=== PATIENT | female | born 1995 | race African-American/Black ===

== ENCOUNTER 2021-04-04 13:06 | Outpatient (CLI) | payer OTHER, SELFPAY ==
--- NOTE | ~2021-04-04 | US_ITS ---
EXAMINATION: US pelvic complete DATE: 04/04/2021 13:56 INDICATION: Menorrhagia Comparison:08/12/2018 TECHNIQUE: Multiple transabdominal sonographic images of the pelvis performed. FINDINGS: The uterus measures 8.7 x 4.8 x 6.3 cm. The endometrial complex measures 7.5 mm. The right ovary measures 3.7 x 2.2 x 2 cm and the left ovary measures 2.9 x 1.6 x 1.8 cm. There are small follicles in each ovary. Normal doppler signal in both ovaries. There is no free fluid in the pelvis. There are no abnormal masses seen on either side. IMPRESSION: 1. Unremarkable pelvic ultrasound. Reviewed, dictated and finalized at location A.
== END 2021-04-04 13:07 | disposition home or self-care (01) ==
PROVIDERS: PCP Physician Assistant; Visit Provider Physician Assistant
DX: N92.1 Excessive and frequent menstruation with irregular cycle (principal)
CPT/HCPCS: 76856

== ENCOUNTER 2022-07-31 10:24 | Outpatient (CLI) | payer OTHER, SELFPAY | END 2022-07-31 10:25 | disposition home or self-care (01) | LOC: ANHLAB 10:28 | PROVIDERS: PCP Physician Assistant; Visit Provider Obstetrics & Gynecology Gynecology | DX: Z36.89 Encounter for other specified antenatal screening (principal); Z3A.00 Weeks of gestation of pregnancy not specified | CPT/HCPCS: 36415; 84702 ==

== ENCOUNTER 2022-08-02 08:13 | Outpatient (CLI) | payer OTHER, SELFPAY | END 2022-08-02 08:14 | disposition home or self-care (01) | PROVIDERS: PCP Physician Assistant; Referring Provider Obstetrics & Gynecology Gynecology; Visit Provider Obstetrics & Gynecology Gynecology | DX: Z36.87 Encounter for antenatal screening for uncertain dates (principal) | CPT/HCPCS: 36415; 84702 ==

== ENCOUNTER 2022-08-15 16:15 | Outpatient (CLI) | payer OTHER, SELFPAY ==
--- NOTE | ~2022-08-15 | US_ITS ---
EXAMINATION: US OB <=14 wk fetus w TV DATE: 08/15/2022 17:06 INDICATION: Assess viability during first trimester TECHNIQUE: Real-time pelvic ultrasound utilizing both a transvaginal and transabdominal probe was pe rformed. The interpreting radiologist was not present for the study. COMPARISON: None. FINDINGS: The uterus measures 11.2 x 5.8 x 6.7 cm. There is an intrauterine gestational sac. A yolk sac and fe victoriano pole are identified. The crown rump length measures 9 mm, which correlates with an estimated gest ational age of 6 weeks and 6 days. heart motion is identified measuring 131 beats per minute (b pm) by M-mode Doppler. The right ovary measures 5.8 x 2.7 x 2.9 cm. Vascular flow identified with arterial waveforms on colo r Doppler in the right ovary along the periphery of a 2.2 cm anechoic right ovarian cyst/follicle. Th e left ovary is not visualized There is no free fluid in the pelvis. IMPRESSION: 1. Single living fetus with heart rate of 131 bpm. 2. Gestational age by ultrasound of 6 weeks 6 day(s) +/- 4 day(s) with ultrasound estimated date of delivery ([facility]) of 04/04/2023. Reviewed, dictated and finalized at location B. IMPRESSION: 1. Single living fetus with heart rate of 131 bpm. 2. Gestational age by ultrasound of 6 weeks 6 day(s) +/- 4 day(s) with ultraso und estimated date of delivery ([facility]) of 04/04/2023.
== END 2022-08-15 16:16 | disposition home or self-care (01) ==
PROVIDERS: PCP Physician Assistant; Visit Provider Obstetrics & Gynecology Gynecology
DX: O36.80X1 Pregnancy with inconclusive fetal viability, fetus 1 (principal); Z3A.01 Less than 8 weeks gestation of pregnancy
CPT/HCPCS: 76801; 76817

== ENCOUNTER 2022-09-13 11:32 | Outpatient (CLI) | payer OTHER, SELFPAY ==
--- NOTE | ~2022-09-13 | US_ITS ---
EXAMINATION: US OB <= 14 weeks fetus DATE: 09/13/2022 12:37 INDICATION: Vaginal bleeding during first trimester TECHNIQUE: Real-time pelvic transabdominal and transvaginal ultrasound was performed. COMPARISON: 08/15/2022 FINDINGS: The uterus measures 13.6 x 9.4 x 6.9 cm. There is an intrauterine gestational sac. There i s a 2.3 x 0.6 x 0.8 cm hypoechoic area adjacent to the gestational sac. A yolk sac is identified. The cervical length is 4.7 cm. heart motion is identified measuring 159 beats per minute (bpm) by M-mode Doppler. The crown rump length measures 4.7 cm, which correlates with an estimated gesta tional age of 11 weeks and 3 day(s) (+/-) 7 day(s). The right ovary measures 5.2 x 1.7 x 1.7 cm. The left ovary measures 3.3 x 1.9 x 1.9 cm. There is nor mal vascular flow in the ovaries. There is no free fluid in the pelvis. IMPRESSION: 1. Live intrauterine with an estimated gestational age of 11 weeks and 3 day(s) (+/-) 7 day (s) and an estimated delivery date of 04/01/2023. 2. Small subchorionic hematoma. Reviewed, dictated and finalized at location B. CLUB ATTENDANT IMPRESSION: 1. Live intrauterine with an estimated gestational age of 11 weeks an d 3 day(s) (+/-) 7 day(s) and an estimated delivery date of 04/01/2023. 2. Small subchorionic hematoma.
== END 2022-09-13 11:33 | disposition home or self-care (01) ==
PROVIDERS: PCP Physician Assistant; Visit Provider Obstetrics & Gynecology Gynecology
DX: O26.851 Spotting complicating pregnancy, first trimester (principal); Z3A.11 11 weeks gestation of pregnancy
CPT/HCPCS: 76801

== ENCOUNTER 2022-10-11 13:43 | Outpatient (CLI) | payer OTHER, SELFPAY ==
--- NOTE | ~2022-10-11 | US_ITS ---
EXAMINATION: US OB follow up DATE: 10/11/2022 14:24 INDICATION: Follow-up subchorionic hematoma TECHNIQUE: Real-time transabdominal obstetric ultrasound. FINDINGS: Comparison to multiple prior studies sequentially, with oldest reviewed study dated 2021. There is a single living fetus in vertex presentation. The placenta is posterior without placenta pr evia. There is a small persistent subchorionic hemorrhage measuring 1.2 x 0.7 x 0.7 cm. cardiac activity and movement is noted with a heart rate of 150 to beats per minute . The amniotic fluid volume is subjectively normal. The following biometric data were obtained: BPD: 27mm corresponds to gestational age 14 weeks 6 days. Head circumference: 109mm corresponds to gestational age 15 weeks 2 days. Abdominal circumference: 93mm corresponds to gestational age 15 weeks 3 days. Femur length: 18mm corresponds to gestational age 15 weeks 2 days. Estimated weight: 122grams +/- 18grams, 33.4%.] IMPRESSION: 1. Single living intrauterine in vertex presentation with an estimated gestational age of 15 weeks 1 days by inititial ultrasound. Appropriate interval growth. 2. Small persistent subchorionic hemorrhage measuring 12 x 7 x 7 mm.. Reviewed, dictated and finalized at location A. SPORTATION INSPECTOR IMPRESSION: 1. Single living intrauterine in vertex presentation with an estimat ed gestational age of 15 weeks 1 days by inititial ultrasound. Appropriate int erval growth. 2. Small persistent subchorionic hemorrhage measuring 12 x 7 x 7 mm..
== END 2022-10-11 13:44 | disposition home or self-care (01) ==
LOC: ANHIMG 13:48
PROVIDERS: PCP Physician Assistant; Visit Provider Obstetrics & Gynecology Gynecology
DX: O36.8910 Maternal care for other specified fetal problems, first trimester, not applicable or unspecified (principal)
CPT/HCPCS: 76816

== ENCOUNTER 2022-11-06 12:53 | Outpatient (CLI) | payer OTHER, SELFPAY ==
--- NOTE | ~2022-11-06 | US_ITS ---
EXAMINATION: US OB /maternal detail DATE: 11/06/2022 14:10 INDICATION: anatomic survey. TECHNIQUE: Real-time ultrasound of the pelvis was performed. COMPARISON: Ultrasound 10/11/2022, 09/13/2022, 08/15/2022 FINDINGS: There is a single living fetus in vertex presentation. The placenta is posterior. heart rate i s 155 beats per minute (bpm). The amniotic fluid volume is subjectively normal. The cervical length i s normal. The following biometric data were obtained: Biparietal diameter (BPD): 4.1 cm; head circumference (HC): 15.3 cm; abdominal circumference (AC): 13 .5 cm; femur length (FL): 3.2 cm. These measurements are concordant. Estimated weight is 283 g +/- 43 g, which correlates with the 53rd percentile when 04/01/23 is u sed as estimated date of delivery. As single measurements, these parameters are each equal to the following estimated gestational ages: BPD: 18 weeks 3 days. HC: 18 weeks 2 days. AC: 19 weeks 0 days. FL: 19 weeks 6 days. estimated gestational age based solely on measurements from this exam is 18 weeks 6 days +/- 1 weeks 2 days. The cerebral ventricles, cerebellum, cisterna magna, nuchal fold, lip, and visualized portions of the spine are normal. The heart is normal. The diaphragm, stomach, kidneys, and bladder are normal. Ther e are two umbilical arteries to yield a 3-vessel cord. The cord insertion is normal. IMPRESSION: 1. Single living fetus in vertex presentation. 2. Estimated weight is 283 g +/- 43 g, which correlates with the 53rd percentile when 04/01/23 is used as estimated date of delivery. Note that estimated date of delivery based on the ultrasound f rom 08/15/2022 would be 04/04/2023. 3. Normal anatomic survey. Reviewed, dictated and finalized at location A. IARD TABLE ASSEMBLER IMPRESSION: 1. Single living fetus in vertex presentation. 2. Estimated weight is 283 g +/- 43 g, which correlates with the 53rd pe rcentile when 04/01/23 is used as estimated date of delivery. Note that estimate d date of delivery based on the ultrasound from 08/15/2022 would be 04/04/2023. 3. Normal anatomic survey.
== END 2022-11-06 12:54 | disposition home or self-care (01) ==
PROVIDERS: PCP Physician Assistant; Visit Provider Advanced Practice Midwife
DX: O36.8910 Maternal care for other specified fetal problems, first trimester, not applicable or unspecified (principal); Z3A.00 Weeks of gestation of pregnancy not specified
CPT/HCPCS: 76805

== ENCOUNTER 2022-12-31 13:04 | Outpatient (CLI) | payer OTHER, SELFPAY ==
--- NOTE | ~2022-12-31 | US_ITS ---
EXAMINATION: US OB follow up DATE: 12/31/2022 13:44 INDICATION: Size greater than dates. TECHNIQUE: Real-time transabdominal obstetric ultrasound. FINDINGS: Comparison to multiple prior studies sequentially, with oldest reviewed study dated 2021. There is a single living fetus in vertex presentation. The placenta is fundal/posterior without plac enta previa. cardiac activity and movement is noted with a heart rate of 141 beats per minute. T he amniotic fluid volume is normal. ANDREW measures 17.1 cm. The following biometric data were obtained: BPD: 65mm corresponds to gestational age 26 weeks 3 days. Head circumference: 239mm corresponds to gestational age 26 weeks 0 days. Abdominal circumference: 227mm corresponds to gestational age 27 weeks 1 days. Femur length: 51mm corresponds to gestational age 27 weeks 3 days. Estimated weight: 1016grams +/- 152grams, 64%.] IMPRESSION: 1. Single living intrauterine in vertex presentation with an estimated gestational age of 26 weeks 4 days by inititial ultrasound. Appropriate interval growth. 2. Normal placenta. Reviewed, dictated and finalized at location B. R CONE GRADER IMPRESSION: 1. Single living intrauterine in vertex presentation with an estimat ed gestational age of 26 weeks 4 days by inititial ultrasound. Appropriate int erval growth. 2. Normal placenta.
== END 2022-12-31 13:05 | disposition home or self-care (01) ==
PROVIDERS: PCP Physician Assistant; Visit Provider Obstetrics & Gynecology Gynecology
DX: O36.63X0 Maternal care for excessive fetal growth, third trimester, not applicable or unspecified (principal); Z3A.26 26 weeks gestation of pregnancy
CPT/HCPCS: 76816

== ENCOUNTER 2023-02-25 13:25 | Outpatient (CLI) | payer OTHER, SELFPAY ==
--- NOTE | 2023-02-25 | ECG_ITS ---
Measurements Intervals [place] Rate: 67 P: 16 MO: 172 QRS: 47 QRSD: 85 T: 16 QT: 344 QTc: 364 Interpretive Statements SINUS RHYTHM NO PREVIOUS ECG AVAILABLE FOR COMPARISON Electronically Signed On 02-26-2023 14:08:37 CDT by Celestine Posada M.D.
--- NOTE | ~2023-02-25 | US_ITS ---
EXAMINATION: US OB follow up DATE: 02/25/2023 14:09 INDICATION: Size greater than dates during third trimester TECHNIQUE: Real-time ultrasound of the pelvis was performed. The interpreting radiologist was not pre sent for the study. COMPARISON: 12/31/2022 FINDINGS: There is a single living fetus in vertex presentation. The placenta is posterior. car diac activity and movement are noted. heart rate is 133 beats per minute (bpm). The amnio tic fluid index is 18.8 cm which is normal (normal range: 8.1 cm to 24.8 cm). The following biometric data were obtained: Biparietal diameter (BPD): 8.3 cm; head circumference (HC): 29.1 cm; abdominal circumference (AC): 32 .4 cm; femur length (FL): 6.9 cm. Head circumference to abdominal circumference ratio is greater than two standard deviations below the mean. Estimated weight is 2644 g +/- 396 g, which correlates with the 60th percentile when 04/02/2023 is used as estimated date of delivery. As single measurements, these parameters are each equal to the following estimated gestational ages w ith ranges of +/- 2 standard deviations: BPD: 33 weeks 3 days +/- 3 weeks 1 days. HC: 32 weeks 1 days +/- 3 weeks 0 days. AC: 36 weeks 2 days +/- 3 weeks 0 days. FL: 35 weeks 4 days +/- 3 weeks 0 days. estimated gestational age based solely on measurements from this exam is 34 weeks 3 days +/- 2 weeks 3 days. IMPRESSION: 1. Single living fetus in vertex presentation. 2. Normal amniotic fluid index. 3. Estimated weight is 2644 g +/- 396 g, which correlates with the 60th percentile when 04/02/20 23 is used as estimated date of delivery. 4. Head circumference to abdominal circumference ratio greater than two standard deviations below the mean. Reviewed, dictated and finalized at location B. IMPRESSION: 1. Single living fetus in vertex presentation. 2. Normal amniotic fluid index. 3. Estimated weight is 2644 g +/- 396 g, which correlates with the 60th p ercentile when 04/02/2023 is used as estimated date of delivery. 4. Head circumference to abdominal circumference ratio greater than two standar d deviations below the mean.
== END 2023-02-25 13:26 | disposition home or self-care (01) ==
PROVIDERS: PCP Physician Assistant; Visit Provider Advanced Practice Midwife
DX: O36.63X0 Maternal care for excessive fetal growth, third trimester, not applicable or unspecified (principal); R07.9 Chest pain, unspecified; R42 Dizziness and giddiness; Z3A.34 34 weeks gestation of pregnancy
CPT/HCPCS: 76816; 93005

== ENCOUNTER 2023-03-14 19:13 | Observation (INO) | payer OTHER, SELFPAY ==
[2023-03-14 19:28] VITALS: BP 116/77; PULSE 129; PULSE 70; RESP 16; TEMP 36.4; O2SAT 97
[2023-03-14 19:30] VITALS: BMI 34.4
--- NOTE | 2023-03-14 19:58 | PC.NURSE ---
Esther Lopez CNM notified of and 37 weeks arriving to unit with DFM. Reactive tracing noted, laura about every 1.5-5.5 mins, PT states she does not feel contractions, vitals reported, maternal HR of 123 on admission, repeat HR taken WNL, PT marking movement via marker. Orders for discharge received.
[2023-03-14 20:02] VITALS: PULSE 79; O2SAT 99
[2023-03-14 20:03] VITALS: PULSE 76; O2SAT 100
[2023-03-14 20:04] VITALS: BP 113/66; PULSE 67
--- NOTE | 2023-03-14 20:23 | OBADM ---
This patient, Danuta De La Cruz, admitted to the OB room Labor/Delivery/Recovery 118 for observation. Patient/family oriented to hospital policies and general routines including ID bracelet, bed and alarms, visiting hours, pain management, procedures, bathroom and other care routines, personal items, smoking policy, room service/diet, and visiting hours. Patient/Family are encouraged to report perceived risks to care and to ask questions if they do not understand what they are told or what they should do.
[2023-03-14 20:59] VITALS: BP 116/77; PULSE 97
--- NOTE | 2023-03-22 07:56 | PM.OBTRLD ---
OB - Triage/Final Diagnosis Visit Information Reason for evaluation: decreased movement Comments/Additional reasons for admission: I have assessed the risk for this patient, Danuta De La Cruz, and determined that she would benefit from observation care. Evaluation Comments: s/p reactive tracing and + report of movements.
--- NOTE | 2023-03-27 09:01 | PM.OBTRLD ---
OB - Triage/Final Diagnosis Visit Information Reason for evaluation: other (Decreased movement. ) Comments/Additional reasons for admission: I have assessed the risk for this patient, Danuta De La Cruz, and determined that she would benefit from observation care. Evaluation Comments: Reactive NST. Feeling several movements.
== END 2023-03-14 20:20 | disposition home or self-care (01) ==
PROVIDERS: Admitting Provider Advanced Practice Midwife; PCP Physician Assistant; Visit Provider Obstetrics & Gynecology Gynecology
DX: O36.8130 Decreased fetal movements, third trimester, not applicable or unspecified (principal); Z3A.37 37 weeks gestation of pregnancy
CPT/HCPCS: 59025; G0378; G0379

== ENCOUNTER 2023-03-30 10:02 | Inpatient (IN) | payer OTHER, SELFPAY ==
[2023-03-30] VITALS (31 sets, daily range): BP systolic 114–146; BP diastolic 55–85; PULSE 64–132; RESP 16; TEMP 36.5–37; O2SAT 88–100; BMI 34.4
[2023-03-30 11:26] LABS: Basophils Percent Auto 0.3 % (0.2-1.2); Eosinophils Percent Auto 0.4 % (0-4.4); Hematocrit 31.8 % (37.0-47.0); Hemoglobin 9.8 g/dL (12.0-15.0); Immature Granulocyte Absolute 0.04 K/mm3 (0.00-0.031); Immature Granulocyte Percent A 0.4 % (0-0.5); Immature Platelet Fraction Pct 9.2 % (0.9-11.2); Lymphocytes Absolute Auto 1.51 K/mm3 (0.9-3.2); Lymphocytes Percent Auto 16.9 % (18.3-44.2); Mean Corpuscular HGB Conc 30.8 g/dl (32-36); Mean Corpuscular Hemoglobin 21.6 pg (26-34); Mean Corpuscular Volume 70.2 fl (80-100); Monocytes Absolute Auto 0.7 K/mm3 (0.1-0.6); Neutrophils Absolute Auto 6.6 K/mm3 (1.3-6.7); Platelet Count Result 176 k/mm3 (150-375); Red Blood Count 4.53 M/mm3 (4.2-5.4); Red Cell Distribution Width 15.2 % (11.5-14.5)
[2023-03-30] MEDS: LACTATED RINGERS 1,000 ML 125 ML IV CONT (11:27)
[2023-03-30 11:53] LABS: Anisocytosis 2+ (NORMAL); Hypochromasia 1+ (NORMAL); Platelet Estimate Adequate (Adequate); Poikilocytosis 1+ (NORMAL); Schistocytes None Seen (NORMAL)
[2023-03-30] MEDS: OXYTOCIN 30 UNITS/NS 500 ML 30 UNITS/500 ML BAG IV CONT (13:13)
[2023-03-30] MEDS: ONDANSETRON INJ 4 MG/2 ML VIAL IV PUSH (13:54)
[2023-03-30] MEDS: fentaNYL CITRATE INJ (*CRX) 100 MCG/2 ML VIAL IV PUSH (14:00)
--- NOTE | 2023-03-30 15:02 | WPDHPUPDATE1 ---
History and Physical Update Update Date/Time: 03/30/23 15:02 History and Physical has been reviewed, including an updated exam of the patient. There are NO changes in the patient's condition. Risks, benefits, and alternatives have been discussed and questions answered. Patient agrees to proceed with procedure.
--- NOTE | 2023-03-30 15:02 | WPDOBADMIT ---
Obstetrics - Admit Note Admission Note: record reviewed. No pertinent additions to the history and/or any subsequent changes in the physical findings that are not consistent with the expected course of the were found. Additions to the history and/or subsequent changes in the physical findings follow. None.
--- NOTE | 2023-03-30 15:02 | PM.OBPRVD ---
OB - Delivery Note Procedure Delivery augmentation: Rupture of Membranes and Pitocin Delivery monitor: External FHT and External Uterine Route of delivery: Episiotomy description: None Laceration Description: None Specimen: No Quantitative Blood Loss (ml): 300 Anesthesia type: None Complications: None Narrative: patient prepped and draped in the usual manner for this procedure. Maternal expulsive of readily delivered vertex over intact perineum. Rest of baby was also delivered without difficulty. Cord was clamped and cut and the baby was placed on maternal abdomen. Placenta delivered spontaneously and the uterus was well contracted with minimal bleeding. Cervix vagina and vulva were inspected with small superficial lacerations which were not bleeding and therefore not repaired. At this point the procedure was considered terminated with immediate postoperative condition excellent. Baby Weeks of gestation at delivery: 39 Infant gender: Female Weight (pounds): 6 Weight (ounces): 12 presentation: vertex position: Right Occiput Anterior Placenta delivery description: Spontaneous Cord Vessel Description: 3 Vessels score one minute: 8 score five minutes: 9
--- NOTE | 2023-03-30 15:06 | PM.OBDSVD ---
DS: Admitting Diagnosis Discharge Date 03/31/2023 Admitting Diagnosis DS: Discharge Diagnosis Discharge Diagnosis (1) , delivered: Code(s): O80 - Encounter for full-term uncomplicated delivery Status: Acute OB - DS: Summary OB Procedures : None OB Procedures Intrapartum: Spontaneous Vag Delivery OB Procedures: : None Time Spent with Patient Time attestation: Total time spent providing and/or coordinating discharge services: DS: Data Data Completed and Pending Labs on day of discharge: Labs from last 24 hours 03/30/23 03/30/23 11:14 11:12 WBC 9.0 RBC 4.53 Hgb 9.8 L Hct 31.8 L MCV 70.2 L MCH 21.6 L MCHC 30.8 L RDW 15.2 H Plt Count 176 MPV TNP Immature Gran % (Auto) 0.4 Neut % (Auto) 74.0 H Lymph % (Auto) 16.9 L [place] % (Auto) 8.0 Eos % (Auto) 0.4 Baso % (Auto) 0.3 Lymph # (Auto) 1.51 [place] # (Auto) 0.7 H Eos # (Auto) 0.0 Baso # (Auto) 0.0 Abs Immat Gran (auto) 0.04 H Absolute Neuts (auto) 6.6 Absolute Nucleated RBC 0.0 Nucleated RBC % 0.0 Platelet Estimate Adequate % Immature Plt Fraction 9.2 Hypochromasia 1+ Poikilocytosis 1+ Anisocytosis 2+ Schistocytes None seen RPR Pending Blood Type O Positive Antibody Screen Negative Discharge Plan Discharge Discharging Clinician: Tru Arredondo Patient Disposition: Home, Self-Care Activity: as tolerated Diet: as tolerated Patient Instructions: Antibiotic Form Stand Alone Forms: General Discharge Information Follow-up/Referrals: Lorie Low MD [Physician] - 3 Weeks Discharge Medications: New ibuprofen 600 mg Tablet 600 mg PO Q6H PRN (Reason: Cramping) Qty: 30 0RF Continued PNV cmb#[id number]-ferrous fumarate-FA [] 28 mg iron- 800 mcg Tablet 1 tablet PO DAILY ferrous sulfate [Iron (ferrous sulfate)] 325 mg (65 mg iron) Tablet 325 mg PO DAILY ergocalciferol (vitamin D2) [Vitamin D2] 1,250 mcg (50,000 unit) Capsule 1,250 mcg PO WEEKLY ipratropium-albuterol 20-100 mcg/actuation Mist 1 puff INHALATION Q4H Date of admission: 03/30/23 10:02 Primary Care Provider: Reina,[place] Admitting Provider: Lorie Low Attending physician on admission: Lorie Low Condition: Stable
[2023-03-30] MEDS: OXYTOCIN 30 UNITS/NS 500 ML 30 UNITS/500 ML BAG 125 UNITS IV CONT (15:18)
--- NOTE | 2023-03-30 17:37 | OBPPTRN ---
1710-Patient transferred to post room #281 via wheelchair. Support person present. Oriented to unit, room, information board, rooming in, admission packet and security measures. Patient verbalizes understanding.
[2023-03-31 05:00] LABS: Hematocrit 30.5 % (37.0-47.0); Hemoglobin 9.4 g/dL (12.0-15.0)
[2023-03-31 08:00] VITALS: BP 105/60; PULSE 67; RESP 16; TEMP 36.9; O2SAT 100
[2023-03-31] MEDS: MULTIVIT/MIN/PREN/FOL AC/IRON TABLET 1 TAB PO (10:26)
[2023-03-31] MEDS: DOCUSATE SODIUM 100 MG CAPSULE PO (10:27)
[2023-03-31] MEDS: POLYSACCHARIDE IRON COMPLEX 150 MG CAPSULE PO (10:27)
[2023-04-01 11:48] LABS: Rapid Plasma Reagin Non-Reactive (NonReactive)
[2023-04-03 11:30] VITALS: BP 123/73; PULSE 74; RESP 20; TEMP 36.7; O2SAT 100
== END 2023-03-31 16:05 | disposition home or self-care (01) | DRG 560 ==
LOC: ANHOB2 03-31 14:33 → ANHLDR 04-03 09:24 → ANHOB2 04-03 09:24
PROVIDERS: Admitting Provider Obstetrics & Gynecology; PCP Physician Assistant; Visit Provider Obstetrics & Gynecology
DX: O70.0 First degree perineal laceration during delivery (principal); Z37.0 Single live birth; Z3A.39 39 weeks gestation of pregnancy
CPT/HCPCS: 36415; 85014; 85018; 85025; 85055; 86592; 86850; 86900; 86901; A9270; J2405; J2590; J3010; J7120

== ENCOUNTER 2025-03-02 13:36 | Outpatient (CLI) | payer OTHER, SELFPAY ==
--- NOTE | ~2025-03-02 | US_ITS ---
EXAMINATION: US OB FOLLOW UP DATE: 03/04/2025 16:38 CDT INDICATION: OB follow-up TECHNIQUE: Real-time transabdominal obstetric ultrasound. FINDINGS: 5 para 4 There is a single intrauterine gestation in variable presentation. The placenta is anterior, with the tip of the placenta located 5.6 cm from the cervix. The cervix measures 4.9 cm in length. cardiac activity and movement is noted with a heart rate of 158 beats per minute. Deepest vertical pocket of amniotic fluid measures 5.5 cm. The following biometric data were obtained: Biparietal diameter (BPD): 4 cm; head circumference (HC): 15 cm; abdominal circumference (AC): 13 cm; femur length (FL): 2.6 cm. These measurements are concordant. Estimated weight is 224.35 g +/- 33.6 g, which correlates with the eighth percentile when 2024 is used as estimated date of delivery. As single measurements, these parameters are each equal to the following estimated gestational ages: BPD: 18 weeks 0 days. HC: 18 weeks 0 days. AC: 18 weeks 3 days. FL: 17 weeks 5 days. estimated gestational age based solely on measurements from this exam is 18 weeks 0 days +/- 1 week 2 days. IMPRESSION: Single intrauterine gestation with an approximate gestational age of 18 weeks and 0 days. Estimated d ue date by ultrasound is 08/03/2025. Follow-up at 20 weeks with anatomy scan is recommended. Reviewed, dictated and finalized at location A. IMPRESSION: Single intrauterine gestation with an approximate gestational age of 18 weeks a nd 0 days. Estimated due date by ultrasound is 08/03/2025. Follow-up at 20 weeks with anatomy scan is recommended.
--- OUTSIDE RECORDS SUMMARY | 2025-03-02 15:19 | XMS_ITS | Clinical Summary ---
Author Organization [facility] [address] [facility] Address [address] [place] [address] Care Team Providers Care Multi [place] Assessor Name Role Phone Ivania Huang Primary Care Provider [phone] Allergies No known active allergies Medications vit-iron fum-folic ( Vitamin) 27 mg iron- 800 mcg tablet Take 1 tablet by mouth daily 90 tablet 3 04/09/20 22 Active metFORMIN XR (GLUCOPHAGE XR) 500 mg 24 hr tabletIndication s:PCOS (polycystic ovarian syndrome) Take 1 tablet (500 mg total) by mouth 2 (two) times a day 180 tablet 2 08/25/20 24 Active medroxyPROGESTER one (PROVERA) 10 mg tablet Take 1 tablet (10 mg total) by mouth daily 10 tablet 08/31/20 24 Active albuterol HFA (PROVENTIL HFA,VENTOLIN HFA,PROAIR HFA) 90 mcg/actuation inhalerIndicatio ns:Mild intermittent asthma without complication INHALE 2 PUFFS BY MOUTH EVERY 6 HOURS NEEDED FOR SHORTNESS OF BREATH OR WHEEZING 18 g 3 02/25/20 25 Active albuterol HFA (PROVENTIL HFA,VENTOLIN HFA,PROAIR HFA) 90 mcg/actuation inhalerIndicatio ns:Mild intermittent asthma without complication Inhale 2 puffs every 6 (six) hours as needed for shortness of breath or wheezing for wheezing 18 g 3 08/25/20 24 025 Discontinued Active Problems Problem Noted Date Diagnosed Date BMI 36.0-36.9,adult 05/20/2024 Assessment & Plan (08/25/2024 7:14 AM CDT): Discussed the patient's BMI. The BMI is above average. BMI management plan is completed. BMI Follow-up includes: nutrition counseling, exercise counseling and education provided. Assessment & Plan (05/20/2024 7:15 AM CDT): Discussed the patient's BMI. The BMI is above average. BMI management plan is completed. BMI Follow-up includes: nutrition counseling, exercise counseling and education provided. Morbid obesity 02/24/2024 Assessment & Plan (08/30/2024 10:24 PM CDT): Discussed the patient's BMI. The BMI is above average. BMI management plan is completed. BMI Follow-up includes: nutrition counseling, exercise counseling and education provided. Patient has an obesity-related condition (not limited to: hypertension, obstructive sleep apnea, osteoarthritis, hyperlipidemia, diabetes, etc.). Therefore, morbid obesity may be documented for patients with a BMI between 35.00-39.99. Assessment & Plan (05/20/2024 1:30 PM CDT): Discussed the patient's BMI. The BMI is above average. BMI management plan is completed. BMI Follow-up includes: nutrition counseling, exercise counseling and education provided. Patient has an obesity-related condition (not limited to: hypertension, obstructive sleep apnea, osteoarthritis, hyperlipidemia, diabetes, etc.). Therefore, morbid obesity may be documented for patients with a BMI between 35.00-39.99. Assessment & Plan (02/24/2024 2:33 PM CDT): Pt informed on likelihood that trouble with losing weight is tied to hormone imbalances from PCOS. She is eating healthy and working out daily. Metformin 500 mg BID. Patient educated on importance of losing weight and risk of comorbidities associated with obesity. Encouraged to adopt a diet like the Mediterranean diet that is rich in fruits, vegetables, healthy fats, and protein. Recommended daily exercise. Iron deficiency anemia due to chronic blood loss 02/24/2024 Assessment & Plan (05/20/2024 1:29 PM CDT): Patient with history of iron-deficiency. Continue with vitamin which will have extra iron. Continue with iron foods. Will continue to monitor Assessment & Plan (02/24/2024 2:30 PM CDT): Pt reports anemia during most recent . Iron panel ordered. F/u pending results. Amenorrhea 08/02/2022 Assessment & Plan (08/30/2024 10:28 PM CDT): Patient has PCOS. Her last 2 pregnancies were more difficulty with conceiving. She is currently on metformin and tolerating the extended-release better. She is on vitamins. She has gone 90 days without a period so discussed the importance of inducing a cycle to avoid hyperplasia. Stressed we need to get a negative test by blood so beta hCG ordered. If negative will do Provera 10 mg x 10 days. If she goes more than 6 months to a year without conceiving will encourage her to follow back up with her management liaison for infertility assistance Assessment & Plan (08/02/2022 10:20 AM CDT): Patient is last period was June 28. Her has been confirmed by her history with the beta hCG on 06/30 and repeated on 07/02. This value essentially doubled and she has had no bleeding since. EDC is approximately April 06 based on her LMP. Reviewed safety issues. Encouraged good nutrition calcium in her diet exercise as tolerated. Avoid alcohol tobacco and illicit drugs. Reviewed medications that are safe. She is going to stop the spironolactone but will continue with the metformin. Follow up with management liaison is already scheduled in the next few weeks. If she has bleeding or any concerns before then she may contact our office. Menorrhagia with irregular cycle 03/08/2021 Assessment & Plan (03/08/2021 1:47 PM CDT): Patient has been bleeding for 16 days using a super plus about every 2 hours. Start with an ultrasound. She will get this scheduled at her convenience before the end of the week. She plans to go to [facility]. She is to get labs done at [facility] to check for anemia as well as rule out and check her electrolytes. If the beta hCG is negative will start Provera 10 mg 1 daily to stop the bleeding. May need endometrial biopsy to rule out hyperplasia. If she becomes dizzy lightheaded becomes acutely short of breath she is to go to the ER as could have anemia. Increased insulin level 12/21/2020 Assessment & Plan (12/21/2020 12:12 PM HOME MANAGER): See pcos PCOS (polycystic ovarian syndrome) 12/21/2020 Assessment & Plan (08/30/2024 10:25 PM CDT): Patient has PCOS. Her last 2 pregnancies were more difficulty with conceiving. She is currently on metformin and tolerating the extended-release better. She is on vitamins. She has gone 90 days without a period so discussed the importance of inducing a cycle to avoid hyperplasia. Stressed we need to get a negative test by blood so beta hCG ordered. If negative will do Provera 10 mg x 10 days. If she goes more than 6 months to a year without conceiving will encourage her to follow back up with her management liaison for infertility assistance Assessment & Plan (05/20/2024 8:01 AM CDT): Known PCOS. Has not been able to tolerate the metformin instant release. Will transition to metformin XR 500 mg in the morning. If tolerates 1 pill will try to increase it to the 2nd 1. Assessment & Plan (02/24/2024 2:20 PM CDT): Patient with known PCOS. Was taking metformin 500 mg BID throughout entire and post- until about 2 months ago when she ran out. Was previously on molina prior to . Complains of hirsutism, skin tags, hyperpigmentation, and trouble losing weight. Metformin 500 mg BID Assessment & Plan (08/02/2022 10:19 AM CDT): Patient with known PCOS. Has been on metformin and spironolactone for treatment. Encouraged to continue the metformin now that she is but stop the spironolactone. She is unsure if she will complete her family with this so will readdress at the end of appropriate time to restart. She is in agreement with this plan. Assessment & Plan (04/09/2022 4:38 PM CDT): Continue metformin 1 g b.i.d. and spironolactone 50 mg daily. Her periods are returning to monthly duration. It appears as though she is beginning to ovulating. Assessment & Plan (11/23/2021 12:01 PM HOME MANAGER): Continue the anti androgen it medications of metformin b.i.d. and spironolactone 50 mg daily. She is tolerating both and seen results with weight loss. Cycles are coming at least every 90 days and she knows to call if she goes beyond the 90 day span. She states she is okay she gets is already on a vitamin. I have her follow-up in 6 months to reassess. May consider checking labs to see if were seen a change and monitor the prediabetes/metabolic syndrome risk Assessment & Plan (05/26/2021 7:41 AM CDT): Continue metformin. Cycles was a little more regular and spontanous onset at about 6-7 weeks. Start spironolactone. Reviewed risks, benefit, alternatives, side effects and proper use. F.u 4-6 months or sooner problems concerns. Assessment & Plan (03/08/2021 1:46 PM CDT): Continue metformin 500 one daily as this is what she can tolerate. Discussed starting spironolactone but will hold off until the menorrhagia is controlled. Concern for thickened lining due to amenorrhea with the PCOS. See menorrhagia Assessment & Plan (12/21/2020 12:11 PM HOME MANAGER): Discussed PCOS at length including pathophys, diagnosis criteria, treatment options and meterman sequela not limited to Metabolic syndrome, DM, increased CVrisk. She has irregular cycles and clinical presentation of elevated androgens so would meed criteria. Her insulin is also high. Her fasting insulin was high and has acanthos nigricans so discussed that she is at high risk for progressing to predm/DM Recommend starting Metformin 500mg every day with meal. Reviewed risks, benefit, alternatives, side effects and proper use. Will monitor levels and check labs prior to next visit. Reviewed starting metformin may return cycles to normal and therefore improve ovulation/fertility so start PNV and use precautions if not wanting to get . She states she is ok with another . Stressed importance of a cycle q 90 days to decrease risk of hyperplasia Acanthosis nigricans 11/20/2020 Assessment & Plan (12/21/2020 12:12 PM HOME MANAGER): See pcos Assessment & Plan (11/20/2020 8:37 PM HOME MANAGER): Check labs for DM/PCOS. Hirsutism 11/20/2020 Assessment & Plan (12/21/2020 12:12 PM HOME MANAGER): See pcos Assessment & Plan (11/20/2020 8:37 PM HOME MANAGER): Check labs for PCOS Irregular menses 11/20/2020 Assessment & Plan (04/09/2022 4:37 PM CDT): Patient's periods are now becoming monthly. She has had 4 cycles for the last 4 months about 4 weeks apart. This is the 1st time this has happened in years. This is since she has been on the metformin 1 g b.i.d. and spironolactone 50 mg daily. She did an ovulation kit [id number] this last month and it too was positive. Continue with PCOS treatment. Assessment & Plan (03/08/2021 1:47 PM CDT): Secondary to PCOS Assessment & Plan (12/21/2020 11:59 AM HOME MANAGER): See PCOS Assessment & Plan (11/20/2020 8:37 PM HOME MANAGER): Has multiple sxs that are suspicious for PCOS. Discussed PCOS at length including pathophys, treatment options and group home sequela not limited to Metabolic syndrome, DM, increased CVrisk. Stressed needs to have a cycle at least q 90 days to avoid increased risk for hyperplasia. Will start with labs and followup in 3-4 Weeks to review. Pre-conception counseling 11/20/2020 Assessment & Plan (05/20/2024 7:55 AM CDT): Patient desires . She is still breast-feeding. States periods are back to monthly. She is on vitamins. Will get the metformin restarted so she can hopefully tolerate which may also help facilitate ovulation. Assessment & Plan (04/09/2022 4:39 PM CDT): Continue vitamins. Discussed ovulation kits and if these continue to be positive most people will conceive over the next few months. She inquired about infertility and advised this is defined as at least a year of unprotected intercourse and if she comes back in without positive test may consider referral to management liaison. Advise once she has a positive test she can continue the metformin but she should stop the spironolactone. Assessment & Plan (05/26/2021 7:42 AM CDT): Start PNV as patient is ok if gets and not preventing. Reviewed with patient as we have on her more anti androgenic medications she has more of a chance of ovulating and hence getting . She voiced understanding Assessment & Plan (12/21/2020 12:12 PM HOME MANAGER): Start PNV since not actively preventing Assessment & Plan (11/20/2020 8:39 PM HOME MANAGER): Patient is not interested in control. Is ok if she gets . Encouraged to start PNV since she isn't preventing . Mild intermittent asthma without complication Assessment & Plan (08/30/2024 10:24 PM CDT): Patient requests refill of her albuterol. With the seasonal change noticed a little bit of increase in her wheezing Assessment & Plan (02/24/2024 2:17 PM CDT): Asthma stable. Albuterol refill ordered for PRN use. Assessment & Plan (11/23/2021 12:02 PM HOME MANAGER): Asthma stable. Requests refills of the albuterol for p.r.n. use. Assessment & Plan (11/20/2020 8:36 PM HOME MANAGER): Asthma has been stable. Usually weather/seasonal. Has albuterol for prn use. Will call if needs refills or an increase in sxs. Resolved Problems Problem Noted Date Diagnosed Date Resolved Date Fatigue 02/24/2024 08/30/2024 Assessment & Plan (02/24/2024 2:31 PM CDT): Likely multifactorial. Check labs and continue care pending results. Obesity (BMI 30-39.9) 04/09/20222023 Assessment & Plan (04/09/2022 4:11 PM CDT): Obesity is unchanged. Discussed the patient's BMI. The BMI is above average. BMI management plan is completed. BMI Follow-up includes: nutrition counseling, exercise counseling and education provided. BMI 37.0-37.9, adult 04/09/2022 024 Assessment & Plan (02/24/2024 2:32 PM CDT): Pt informed on likelihood that trouble with losing weight is tied to hormone imbalances from PCOS. She is eating healthy and working out daily. Metformin 500 mg BID. Patient educated on importance of losing weight and risk of comorbidities associated with obesity. Encouraged to adopt a diet like the Mediterranean diet that is rich in fruits, vegetables, healthy fats, and protein. Recommended daily exercise. Assessment & Plan (04/09/2022 4:11 PM CDT): Obesity is unchanged. Discussed the patient's BMI. The BMI is above average. BMI management plan is completed. BMI Follow-up includes: nutrition counseling, exercise counseling and education provided. Obesity (BMI 30-39.9) 11/23/20212021 Assessment & Plan (11/23/2021 7:47 AM HOME MANAGER): Obesity is unchanged. Discussed the patient's BMI. The BMI is above average. BMI management plan is completed. BMI Follow-up includes: nutrition counseling, exercise counseling and education provided. BMI 35.0-35.9,adult 11/23/2021 04/09/20 Assessment & Plan (11/23/2021 7:47 AM HOME MANAGER): Obesity is unchanged. Discussed the patient's BMI. The BMI is above average. BMI management plan is completed. BMI Follow-up includes: nutrition counseling, exercise counseling and education provided. BMI 35.0-35.9,adult 05/26/2021 11/23/19 Assessment & Plan (05/26/2021 7:16 AM CDT): Obesity is unchanged. Discussed the patient's BMI. The BMI is above average. BMI management plan is completed. BMI Follow-up includes: nutrition counseling, exercise counseling and education provided. Obesity (BMI 30-39.9) 03/08/20212021 Assessment & Plan (05/26/2021 7:16 AM CDT): Obesity is unchanged. Discussed the patient's BMI. The BMI is above average. BMI management plan is completed. BMI Follow-up includes: nutrition counseling, exercise counseling and education provided. Assessment & Plan (03/08/2021 12:17 PM CDT): Obesity is unchanged. Discussed the patient's BMI. The BMI is above average. BMI management plan is completed. BMI Follow-up includes: nutrition counseling, exercise counseling and education provided. BMI 36.0-36.9,adult 03/08/2021 05/26/20 21 Assessment & Plan (03/08/2021 12:18 PM CDT): Obesity is unchanged. Discussed the patient's BMI. The BMI is above average. BMI management plan is completed. BMI Follow-up includes: nutrition counseling, exercise counseling and education provided. Elevated insulin-like growth factor 1 (IGF-1) level 12/21/2020 12/21/2020 Dysuria 12/21/2020 08/30/2024 Assessment & Plan (03/08/2021 1:42 PM CDT): Resolved with treatment of the UTI. Assessment & Plan (12/21/2020 12:14 PM HOME MANAGER): Pt presents with dysuria. Unable to obtain urine same as video visit. Will empirically treat but if sxs don't improve/resolve, will need to followup in the office. Antibiotic to pharmacy. Reviewed bladder care. BMI 35.0-35.9,adult 11/17/2020 03/08/20 Assessment & Plan (11/17/2020 2:29 PM HOME MANAGER): Obesity is unchanged. Discussed the patient's BMI. The BMI is above average. BMI management plan is completed. BMI Follow-up includes: nutrition counseling, exercise counseling and education provided. Immunizations Immunization Administration Dates Next Due DTP 08/29/1999, 7,04/07/1996,01/08,1995 HPV, Quadrivalent 11/15/2009,05/18/2009,05/18/20 08 Hep A, Ped Unspecified 05/18/2008 Hep A, Pediatric 08/19/2012 Hep B, Adolescent or Pediatric 04/07/1996,1994,1995 HiB 02/11/1997, 6,01/09/1996,09/24 Influenza, Unspecified 08/25/2024(Deferr ed: Patient Refused),11/04/2023(Deferred: Patient Refused),08/02/2022(Deferred: Patient Refused),12/05/2021(Deferred: Patient Refused),11/23/2021(Deferred: Patient Refused),11/17/2020(Deferred: Patient Refused) MMR 08/29/1999,02/21/1997 Meningococcal MCV4, Unspecified 08/19/2012 Meningococcal Polysaccharide (Menomune) 06/05/2007 OPV 08/29/1999, 6,01/09/1996,09/24 Tdap 01/16/2023,11/04/2018,06/05/2007 Varicella 10/14/2013,08/19/2012,07/09/1996 Medical History Medical History Date Comments Asthma Family History Medical History Relation Name Comments Hypertension Mother Relation Name Status Comments Father Alive Mother Alive Social History Tobacco Use Types Packs/Day Years Used Date Smoking Tobacco: Never Passive Smoke Exposure: Never Smokeless Tobacco: Never Tobacco Cessation:Counseling Given: Not Answered Alcohol Use Standard Drinks/Week Comments Never 0 (1 standard drink = 0.6 oz pur e alcohol) AUDIT-C Answer Date Recorded Frequency of Alcohol Consumption Not on file 02/24/2024 Q2: How many drinks containi ng alcohol do you have on a typical day when you are drinking? Patient does not drink Frequency of Binge Drinking Not on file 02/03 PHQ-2 Answer Date Recorded PHQ-2 Total Score (If total score is 3 or more points, staff should administer the PHQ-9) 0 08/25/2024 Comments No Sex and Gender Information Value Date Recorded Sex Assigned at Not on file Legal Sex Female 2:19 PM CDT Gender Identity Female 12/21/2020 11:03 AM HOME MANAGER Sexual Orientation Straight 12/21/2020 11 :03 AM HOME MANAGER Occupation Industry Job Start Date Job End Date [employer] Not on file Not on file Not on file Obstetrics History Last Filed Vital Signs Vital Sign Reading Time Taken Comments Blood Pressure 129/81 10/07/2024 10:09 AM HOME MANAGER Pulse 86 10/07/2024 10:09 AM HOME MANAGER Temperature 37.2 C (99 F) 08/25/2024 7:10 AM CDT Respiratory Rate - - Oxygen Saturation 97% 10/07/2024 10:09 AM HOME MANAGER Inhaled Oxygen Concentration - - Weight 96.8 kg (213 lb 6.4 oz) 10/07/2024 10:09 AM HOME MANAGER Height 162.6 cm (5' 4 ) 10/07/2024 10:09 AM HOME MANAGER Body Mass Index 36.63 10/07/2024 10:09 AM HOME MANAGER Plan of Treatment Health Maintenance Due Date Last Done Comments Hepatitis C Screening 1995 Regular Well Visit/Exam 18-64 2013 Pneumococcal vaccine <65 (1 of 2 - PCV) 2014 Cervical Cancer Screening 09/25/2020 09/25/2019 Influenza Vaccine (Season Ended) 2025 Depression Screening 08/25/2025 08/25/2024, 05/20/2024, 02/24/2024, Additional history exists DTaP/Tdap/Td Vaccine (9 - Td or Tdap) 01/16/2033 01/16/2023, 11/04/2018, 06/05/2007, Additional history exists Hepatitis B Screening Completed 04/07/1996 , 1995, 1995 HPV Vaccines Completed 11/15/2009, 05/04, 05/18/2008 Varicella Vaccines Completed 10/14/2013, 1 , 07/09/1996 Procedures Procedure Name Priority Date/Time Associated Diagnosis Comments PAP SMEAR Routine 09/25/2019 from Last 3 Months or Most Recently Relevant to Health Maintenance Results * HM PAP SMEAR (09/25/2019) us Historical Provider HEALTH MAINTENANCE Final Result from Last 3 Months or Most Recently Relevant to Health Maintenance Insurance [facility] Care Teams Multi Township Assessor Relationship Specialty Start Date End Date Ivania Huang PA [address] [facility] [address] [place] [address] PCP - General Internal Medicine 06/22/20
--- OUTSIDE RECORDS SUMMARY | 2025-03-02 15:20 | XMS_ITS | Clinical Summary ---
Author Organization [facility] [address] [place] [address] Phone Care Team Providers Care Manager Telemetry Name Role Phone Wai Kaur Primary Care Provider [phone] Social History Tobacco Use Types Packs/Day Years Used Date Smoking Tobacco: Never Assessed Comments Unknown Sex and Gender Information Value Date Recorded Sex Assigned at Not on file Legal Sex Female 11:17 AM CDT Gender Identity Not on file Sexual Orientation Not on file Plan of Treatment Health Maintenance Due Date Last Done Comments HEPATITIS B VACCINES (1 of 3 - 19+ 3-dose series) 2014 CERVICAL CANCER SCREENING 2016 HPV/Cotest (21-29) 2016 PAP SMEAR 2016 INFLUENZA VACCINE (#1) 2024 DTAP/TDAP/TD VACCINES (2 - T d or Tdap) 11/04/2028 11/04/2018 HPV VACCINES Aged Out No longer eligi ble based on patient's age to complete this topic Insurance [employer] [place] Care Teams Manager Telemetry Relationship Specialty Start Date End Date Wai Kaur PA [address] [place] [address] PCP - General Physician Construction Flagger 06/23/18
--- OUTSIDE RECORDS SUMMARY | 2025-03-02 15:20 | XMS_ITS | Referral Summary ---
Author Organization [facility] [place] [address] [facility] Address [address] [place] [address] Care Team Providers Care Video Editing Internship Name Role Phone Ivania Huang Primary Care Provider +1- [phone] Allergies No known active allergies Medications vit-iron [...] her to follow back up with her supervisor shuttle preparation for infertility assistance Assessment & Plan (08/02/2022 [...] continue with the metformin. Follow up with supervisor shuttle preparation is already scheduled in the next few [...] the week. She plans to go to [facility]. She is to get labs done at [facility] to check for anemia as well as [...] 12/21/2020 Assessment & Plan (12/21/2020 12:12 PM LABORER POWERHOUSE): See pcos PCOS (polycystic ovarian syndrome) 12/21/2020 [...] her to follow back up with her supervisor shuttle preparation for infertility assistance Assessment & Plan (05/20/2024 [...] ovulating. Assessment & Plan (11/23/2021 12:01 PM LABORER POWERHOUSE): Continue the anti androgen it medications of [...] menorrhagia Assessment & Plan (12/21/2020 12:11 PM LABORER POWERHOUSE): Discussed PCOS at length including pathophys, diagnosis criteria, treatment options and extermination inspector sequela not limited to Metabolic syndrome, DM, [...] 11/20/2020 Assessment & Plan (12/21/2020 12:12 PM LABORER POWERHOUSE): See pcos Assessment & Plan (11/20/2020 8:37 PM LABORER POWERHOUSE): Check labs for DM/PCOS. Hirsutism 11/20/2020 Assessment & Plan (12/21/2020 12:12 PM LABORER POWERHOUSE): See pcos Assessment & Plan (11/20/2020 8:37 PM LABORER POWERHOUSE): Check labs for PCOS Irregular menses 11/20/2020 [...] mg daily. She did an ovulation kit [id number] this last month and it too was positive. Continue with PCOS treatment. Assessment & Plan (03/08/2021 1:47 PM CDT): Secondary to PCOS Assessment & Plan (12/21/2020 11:59 AM LABORER POWERHOUSE): See PCOS Assessment & Plan (11/20/2020 8:37 PM LABORER POWERHOUSE): Has multiple sxs that are suspicious for PCOS. Discussed PCOS at length including pathophys, treatment options and jail sequela not limited to Metabolic syndrome, DM, [...] without positive test may consider referral to supervisor shuttle preparation. Advise once she has a positive test [...] understanding Assessment & Plan (12/21/2020 12:12 PM LABORER POWERHOUSE): Start PNV since not actively preventing Assessment & Plan (11/20/2020 8:39 PM LABORER POWERHOUSE): Patient is not interested in control. Is [...] use. Assessment & Plan (11/23/2021 12:02 PM LABORER POWERHOUSE): Asthma stable. Requests refills of the albuterol for p.r.n. use. Assessment & Plan (11/20/2020 8:36 PM LABORER POWERHOUSE): Asthma has been stable. Usually weather/seasonal. Has [...] 11/23/20212021 Assessment & Plan (11/23/2021 7:47 AM LABORER POWERHOUSE): Obesity is unchanged. Discussed the patient's BMI. The BMI is above average. BMI management plan is completed. BMI Follow-up includes: nutrition counseling, exercise counseling and education provided. BMI 35.0-35.9,adult 11/23/2021 04/09/20 Assessment & Plan (11/23/2021 7:47 AM LABORER POWERHOUSE): Obesity is unchanged. Discussed the patient's BMI. [...] UTI. Assessment & Plan (12/21/2020 12:14 PM LABORER POWERHOUSE): Pt presents with dysuria. Unable to obtain urine same as video visit. Will empirically treat but if sxs don't improve/resolve, will need to followup in the office. Antibiotic to pharmacy. Reviewed bladder care. BMI 35.0-35.9,adult 11/17/2020 03/08/20 Assessment & Plan (11/17/2020 2:29 PM LABORER POWERHOUSE): Obesity is unchanged. Discussed the patient's BMI. [...] OPV 08/29/1999, 6,01/09/1996,09/24 Tdap 01/16/2023,11/04/2018,06/05/2007 Varicella 10/14/2013,08/19/2012,07/09/1996 Social History Tobacco Use Types Packs/Day Years [...] CDT Gender Identity Female 12/21/2020 11:03 AM LABORER POWERHOUSE Sexual Orientation Straight 12/21/2020 11 :03 AM LABORER POWERHOUSE Occupation Industry Job Start Date Job End Date [employer] Not on file Not on file Not on file Last Filed Vital Signs Vital Sign Reading Time Taken Comments Blood Pressure 129/81 10/07/2024 10:09 AM LABORER POWERHOUSE Pulse 86 10/07/2024 10:09 AM LABORER POWERHOUSE Temperature 37.2 C (99 F) 08/25/2024 7:10 AM CDT Respiratory Rate - - Oxygen Saturation 97% 10/07/2024 10:09 AM LABORER POWERHOUSE Inhaled Oxygen Concentration - - Weight 96.8 kg (213 lb 6.4 oz) 10/07/2024 10:09 AM LABORER POWERHOUSE Height 162.6 cm (5' 4 ) 10/07/2024 10:09 AM LABORER POWERHOUSE Body Mass Index 36.63 10/07/2024 10:09 AM LABORER POWERHOUSE Plan of Treatment Not on file Procedures Procedure Name Priority Date/Time Associated Diagnosis Comments HM PAP SMEAR Routine 09/25/2019 from Last 3 Months or Most Recently Relevant to Health Maintenance Results * HM PAP SMEAR (09/25/2019) us Historical Provider MD HEALTH MAINTENANCE Final Result from Last 3 Months or Most Recently Relevant to Health Maintenance Insurance [id number] [place] [id number] [place] [address] Care Teams Video Editing Internship Relationship Specialty Start Date End Date Ivania Huang PA [address] [facility] [address] [place] [address] PCP - General Internal Medicine 06/22/20
--- OUTSIDE RECORDS SUMMARY | 2025-03-10 13:49 | XMS_ITS | Clinical Summary ---
Author Organization [facility] [place] [address] [facility] Address [address] [place] [address] Care Team Providers Care Email Designer Name Role Phone Ivania Huang Primary Care Provider [phone]- [phone] Allergies No known active allergies Medications vit-iron [...] her to follow back up with her compressor mechanic bus for infertility assistance Assessment & Plan (08/02/2022 [...] continue with the metformin. Follow up with compressor mechanic bus is already scheduled in the next few [...] the week. She plans to go to [facility]. She is to get labs done at [facility] to check for anemia as well [...] 12/21/2020 Assessment & Plan (12/21/2020 12:12 PM DIGITAL MEDIA ANALYST): See pcos PCOS (polycystic ovarian syndrome) 12/21/2020 [...] her to follow back up with her compressor mechanic bus for infertility assistance Assessment & Plan (05/20/2024 [...] ovulating. Assessment & Plan (11/23/2021 12:01 PM DIGITAL MEDIA ANALYST): Continue the anti androgen it medications of [...] menorrhagia Assessment & Plan (12/21/2020 12:11 PM DIGITAL MEDIA ANALYST): Discussed PCOS at length including pathophys, diagnosis criteria, treatment options and prison sequela not limited to Metabolic syndrome, DM, [...] 11/20/2020 Assessment & Plan (12/21/2020 12:12 PM DIGITAL MEDIA ANALYST): See pcos Assessment & Plan (11/20/2020 8:37 PM DIGITAL MEDIA ANALYST): Check labs for DM/PCOS. Hirsutism 11/20/2020 Assessment & Plan (12/21/2020 12:12 PM DIGITAL MEDIA ANALYST): See pcos Assessment & Plan (11/20/2020 8:37 PM DIGITAL MEDIA ANALYST): Check labs for PCOS Irregular menses 11/20/2020 [...] mg daily. She did an ovulation kit [id number] this last month and it too was positive. Continue with PCOS treatment. Assessment & Plan (03/08/2021 1:47 PM CDT): Secondary to PCOS Assessment & Plan (12/21/2020 11:59 AM DIGITAL MEDIA ANALYST): See PCOS Assessment & Plan (11/20/2020 8:37 PM DIGITAL MEDIA ANALYST): Has multiple sxs that are suspicious for PCOS. Discussed PCOS at length including pathophys, treatment options and prison sequela not limited to Metabolic syndrome, DM, [...] without positive test may consider referral to compressor mechanic bus. Advise once she has a positive test [...] understanding Assessment & Plan (12/21/2020 12:12 PM DIGITAL MEDIA ANALYST): Start PNV since not actively preventing Assessment & Plan (11/20/2020 8:39 PM DIGITAL MEDIA ANALYST): Patient is not interested in control. Is [...] use. Assessment & Plan (11/23/2021 12:02 PM DIGITAL MEDIA ANALYST): Asthma stable. Requests refills of the albuterol for p.r.n. use. Assessment & Plan (11/20/2020 8:36 PM DIGITAL MEDIA ANALYST): Asthma has been stable. Usually weather/seasonal. Has [...] 11/23/20212021 Assessment & Plan (11/23/2021 7:47 AM DIGITAL MEDIA ANALYST): Obesity is unchanged. Discussed the patient's BMI. The BMI is above average. BMI management plan is completed. BMI Follow-up includes: nutrition counseling, exercise counseling and education provided. BMI 35.0-35.9,adult 11/23/2021 04/09/20 Assessment & Plan (11/23/2021 7:47 AM DIGITAL MEDIA ANALYST): Obesity is unchanged. Discussed the patient's BMI. [...] UTI. Assessment & Plan (12/21/2020 12:14 PM DIGITAL MEDIA ANALYST): Pt presents with dysuria. Unable to obtain urine same as video visit. Will empirically treat but if sxs don't improve/resolve, will need to followup in the office. Antibiotic to pharmacy. Reviewed bladder care. BMI 35.0-35.9,adult 11/17/2020 03/08/20 Assessment & Plan (11/17/2020 2:29 PM DIGITAL MEDIA ANALYST): Obesity is unchanged. Discussed the patient's BMI. [...] CDT Gender Identity Female 12/21/2020 11:03 AM DIGITAL MEDIA ANALYST Sexual Orientation Straight 12/21/2020 11 :03 AM DIGITAL MEDIA ANALYST Occupation Industry Job Start Date Job End Date [employer] Not on file Not on file Not on file Obstetrics History Last Filed Vital Signs Vital Sign Reading Time Taken Comments Blood Pressure 129/81 10/07/2024 10:09 AM DIGITAL MEDIA ANALYST Pulse 86 10/07/2024 10:09 AM DIGITAL MEDIA ANALYST Temperature 37.2 C (99 F) 08/25/2024 7:10 AM CDT Respiratory Rate - - Oxygen Saturation 97% 10/07/2024 10:09 AM DIGITAL MEDIA ANALYST Inhaled Oxygen Concentration - - Weight 96.8 kg (213 lb 6.4 oz) 10/07/2024 10:09 AM DIGITAL MEDIA ANALYST Height 162.6 cm (5' 4 ) 10/07/2024 10:09 AM DIGITAL MEDIA ANALYST Body Mass Index 36.63 10/07/2024 10:09 AM DIGITAL MEDIA ANALYST Plan of Treatment Health Maintenance Due Date [...] Most Recently Relevant to Health Maintenance Insurance [facility] Care Teams Email Designer Relationship Specialty Start Date End Date Ivania Huang PA [address] [facility] [address] [place] [address] PCP - General Internal Medicine 06/22/20
--- OUTSIDE RECORDS SUMMARY | 2025-03-10 13:49 | XMS_ITS | Clinical Summary ---
Author Organization [facility] [address] [place] [address] Phone Care Team Providers Care Aquatics Lifeguard Name Role Phone Wai Kaur Primary Care Provider [phone] Social History Tobacco Use Types Packs/Day Years [...] topic Insurance [employer] [place] Care Teams Aquatics Lifeguard Relationship Specialty Start Date End Date Wai Kaur PA [address] [place] [address] PCP - General Physician Toe Trimmer 06/23/18
--- OUTSIDE RECORDS SUMMARY | 2025-03-10 13:49 | XMS_ITS | Referral Summary ---
Author Organization [facility] [place] [address] Address [address] [place] [address] Care Team Providers Care Field Service Technician Name Role Phone Ivania Huang Primary Care Provider [phone]- [phone] Allergies No known active allergies Medications vit-iron [...] her to follow back up with her dealer development manager for infertility assistance Assessment & Plan (08/02/2022 [...] continue with the metformin. Follow up with dealer development manager is already scheduled in the next few [...] the week. She plans to go to [facility]. She is to get labs done at [facility] to check for anemia as well [...] 12/21/2020 Assessment & Plan (12/21/2020 12:12 PM IMPREGNATOR AND DRIER HELPER): See pcos PCOS (polycystic ovarian syndrome) 12/21/2020 [...] her to follow back up with her dealer development manager for infertility assistance Assessment & Plan (05/20/2024 [...] ovulating. Assessment & Plan (11/23/2021 12:01 PM IMPREGNATOR AND DRIER HELPER): Continue the anti androgen it medications of [...] menorrhagia Assessment & Plan (12/21/2020 12:11 PM IMPREGNATOR AND DRIER HELPER): Discussed PCOS at length including pathophys, diagnosis criteria, treatment options and intermediate sequela not limited to Metabolic syndrome, DM, [...] 11/20/2020 Assessment & Plan (12/21/2020 12:12 PM IMPREGNATOR AND DRIER HELPER): See pcos Assessment & Plan (11/20/2020 8:37 PM IMPREGNATOR AND DRIER HELPER): Check labs for DM/PCOS. Hirsutism 11/20/2020 Assessment & Plan (12/21/2020 12:12 PM IMPREGNATOR AND DRIER HELPER): See pcos Assessment & Plan (11/20/2020 8:37 PM IMPREGNATOR AND DRIER HELPER): Check labs for PCOS Irregular menses 11/20/2020 [...] mg daily. She did an ovulation kit [id number] this last month and it too was positive. Continue with PCOS treatment. Assessment & Plan (03/08/2021 1:47 PM CDT): Secondary to PCOS Assessment & Plan (12/21/2020 11:59 AM IMPREGNATOR AND DRIER HELPER): See PCOS Assessment & Plan (11/20/2020 8:37 PM IMPREGNATOR AND DRIER HELPER): Has multiple sxs that are suspicious for PCOS. Discussed PCOS at length including pathophys, treatment options and intermediate sequela not limited to Metabolic syndrome, DM, [...] without positive test may consider referral to dealer development manager. Advise once she has a positive test [...] understanding Assessment & Plan (12/21/2020 12:12 PM IMPREGNATOR AND DRIER HELPER): Start PNV since not actively preventing Assessment & Plan (11/20/2020 8:39 PM IMPREGNATOR AND DRIER HELPER): Patient is not interested in control. Is [...] use. Assessment & Plan (11/23/2021 12:02 PM IMPREGNATOR AND DRIER HELPER): Asthma stable. Requests refills of the albuterol for p.r.n. use. Assessment & Plan (11/20/2020 8:36 PM IMPREGNATOR AND DRIER HELPER): Asthma has been stable. Usually weather/seasonal. Has [...] 11/23/20212021 Assessment & Plan (11/23/2021 7:47 AM IMPREGNATOR AND DRIER HELPER): Obesity is unchanged. Discussed the patient's BMI. The BMI is above average. BMI management plan is completed. BMI Follow-up includes: nutrition counseling, exercise counseling and education provided. BMI 35.0-35.9,adult 11/23/2021 04/09/20 Assessment & Plan (11/23/2021 7:47 AM IMPREGNATOR AND DRIER HELPER): Obesity is unchanged. Discussed the patient's BMI. [...] UTI. Assessment & Plan (12/21/2020 12:14 PM IMPREGNATOR AND DRIER HELPER): Pt presents with dysuria. Unable to obtain urine same as video visit. Will empirically treat but if sxs don't improve/resolve, will need to followup in the office. Antibiotic to pharmacy. Reviewed bladder care. BMI 35.0-35.9,adult 11/17/2020 03/08/20 Assessment & Plan (11/17/2020 2:29 PM IMPREGNATOR AND DRIER HELPER): Obesity is unchanged. Discussed the patient's BMI. [...] CDT Gender Identity Female 12/21/2020 11:03 AM IMPREGNATOR AND DRIER HELPER Sexual Orientation Straight 12/21/2020 11 :03 AM IMPREGNATOR AND DRIER HELPER Occupation Industry Job Start Date Job End Date [employer] Not on file Not on file Not on file Last Filed Vital Signs Vital Sign Reading Time Taken Comments Blood Pressure 129/81 10/07/2024 10:09 AM IMPREGNATOR AND DRIER HELPER Pulse 86 10/07/2024 10:09 AM IMPREGNATOR AND DRIER HELPER Temperature 37.2 C (99 F) 08/25/2024 7:10 AM CDT Respiratory Rate - - Oxygen Saturation 97% 10/07/2024 10:09 AM IMPREGNATOR AND DRIER HELPER Inhaled Oxygen Concentration - - Weight 96.8 kg (213 lb 6.4 oz) 10/07/2024 10:09 AM IMPREGNATOR AND DRIER HELPER Height 162.6 cm (5' 4 ) 10/07/2024 10:09 AM IMPREGNATOR AND DRIER HELPER Body Mass Index 36.63 10/07/2024 10:09 AM IMPREGNATOR AND DRIER HELPER Plan of Treatment Not on file Procedures Procedure Name Priority Date/Time Associated Diagnosis Comments HM PAP SMEAR Routine 09/25/2019 from Last 3 Months or Most Recently Relevant to Health Maintenance Results * HM PAP SMEAR (09/25/2019) us Historical Provider MD HEALTH MAINTENANCE Final Result from Last 3 Months or Most Recently Relevant to Health Maintenance Insurance [id number] [place] [id number] [place] [address] Care Teams Field Service Technician Relationship Specialty Start Date End Date Ivania Huang PA [address] [facility] [address] [place] [address] PCP - General Internal Medicine 06/22/20
== END 2025-03-02 14:02 | disposition home or self-care (01) ==
PROVIDERS: PCP Physician Assistant; Visit Provider Obstetrics & Gynecology Gynecology
DX: Z36.9 Encounter for antenatal screening, unspecified (principal); Z3A.18 18 weeks gestation of pregnancy
CPT/HCPCS: 76805

== ENCOUNTER 2025-03-16 13:57 | Outpatient (CLI) | payer OTHER, SELFPAY ==
--- NOTE | ~2025-03-16 | US_ITS ---
EXAMINATION: US OB /maternal detail DATE: 03/16/2025 15:38 INDICATION: survey TECHNIQUE: Multiple obstetric sonographic images performed. FINDINGS: Comparison ultrasound dated 03/02/2025 There is a single living fetus in variable presentation. The placenta is fundal/anterior without lexy centa previa. Amniotic fluid volume is subjectively normal. cardiac activity and movement is noted with a heart rate of 151 beats per minute. The following anatomy was identified as normal: 4 chamber heart 3 vessel cord cord insertion kidneys urinary bladder stomach spine diaphragm ventricles cisterna magna cerebellum The following biometric data were obtained: BPD: 49mm corresponds to gestational age 21 weeks 0 days. Head circumference: 178 mm corresponds to gestational age 20 weeks 2 days. Abdominal circumference: 161 mm corresponds to gestational age 21 weeks 1 days. Femur length: 33 mm corresponds to gestational age 20 weeks 2 days. Head circumference to abdominal circumference ratio: 1.11 (normal range for expected gestational age is 1.06-1.25). Estimated weight: 373 grams +/- 56 grams using Hadlock method, 31%. IMPRESSION: 1: Single living intrauterine with an estimated gestational age of 20weeks 0days by initial ultrasound measurements, with an EDC of 08/03/2025 in variable presentation. 2. Normal survey. Reviewed, dictated and finalized at location A. IMPRESSION: 1: Single living intrauterine with an estimated gestational age of 20 weeks 0days by initial ultrasound measurements, with an EDC of 08/03/2025 in raya iable presentation. 2. Normal survey.
--- OUTSIDE RECORDS SUMMARY | 2025-03-16 14:15 | XMS_ITS | Referral Summary ---
Author Organization [facility] [place] [address] Address [address] [place] [address] Care Team Providers Care Filter Plant Supervisor Name Role Phone Ivania Huang Primary Care Provider [phone] Allergies No known active allergies Medications vit-iron [...] her to follow back up with her forge shop supervisor for infertility assistance Assessment & Plan (08/02/2022 [...] continue with the metformin. Follow up with forge shop supervisor is already scheduled in the next few [...] the week. She plans to go to [facility]. She is to get labs done at [facility] to check for anemia as [...] 12/21/2020 Assessment & Plan (12/21/2020 12:12 PM HORTICULTURAL MANAGER): See pcos PCOS (polycystic ovarian syndrome) [...] her to follow back up with her forge shop supervisor for infertility assistance Assessment & Plan (05/20/2024 [...] ovulating. Assessment & Plan (11/23/2021 12:01 PM HORTICULTURAL MANAGER): Continue the anti androgen it medications [...] menorrhagia Assessment & Plan (12/21/2020 12:11 PM HORTICULTURAL MANAGER): Discussed PCOS at length including pathophys, diagnosis criteria, treatment options and terminal gauger sequela not limited to Metabolic syndrome, DM, [...] 11/20/2020 Assessment & Plan (12/21/2020 12:12 PM HORTICULTURAL MANAGER): See pcos Assessment & Plan (11/20/2020 8:37 PM HORTICULTURAL MANAGER): Check labs for DM/PCOS. Hirsutism 11/20/2020 Assessment & Plan (12/21/2020 12:12 PM HORTICULTURAL MANAGER): See pcos Assessment & Plan (11/20/2020 8:37 PM HORTICULTURAL MANAGER): Check labs for PCOS Irregular menses [...] mg daily. She did an ovulation kit [id number] this last month and it too was positive. Continue with PCOS treatment. Assessment & Plan (03/08/2021 1:47 PM CDT): Secondary to PCOS Assessment & Plan (12/21/2020 11:59 AM HORTICULTURAL MANAGER): See PCOS Assessment & Plan (11/20/2020 8:37 PM HORTICULTURAL MANAGER): Has multiple sxs that are suspicious for PCOS. Discussed PCOS at length including pathophys, treatment options and terminal gauger sequela not limited to Metabolic syndrome, DM, [...] without positive test may consider referral to forge shop supervisor. Advise once she has a positive test [...] understanding Assessment & Plan (12/21/2020 12:12 PM HORTICULTURAL MANAGER): Start PNV since not actively preventing Assessment & Plan (11/20/2020 8:39 PM HORTICULTURAL MANAGER): Patient is not interested in control. [...] use. Assessment & Plan (11/23/2021 12:02 PM HORTICULTURAL MANAGER): Asthma stable. Requests refills of the albuterol for p.r.n. use. Assessment & Plan (11/20/2020 8:36 PM HORTICULTURAL MANAGER): Asthma has been stable. Usually weather/seasonal. [...] 11/23/20212021 Assessment & Plan (11/23/2021 7:47 AM HORTICULTURAL MANAGER): Obesity is unchanged. Discussed the patient's BMI. The BMI is above average. BMI management plan is completed. BMI Follow-up includes: nutrition counseling, exercise counseling and education provided. BMI 35.0-35.9,adult 11/23/2021 04/09/20 Assessment & Plan (11/23/2021 7:47 AM HORTICULTURAL MANAGER): Obesity is unchanged. Discussed the patient's [...] UTI. Assessment & Plan (12/21/2020 12:14 PM HORTICULTURAL MANAGER): Pt presents with dysuria. Unable to obtain urine same as video visit. Will empirically treat but if sxs don't improve/resolve, will need to followup in the office. Antibiotic to pharmacy. Reviewed bladder care. BMI 35.0-35.9,adult 11/17/2020 03/08/20 Assessment & Plan (11/17/2020 2:29 PM HORTICULTURAL MANAGER): Obesity is unchanged. Discussed the patient's [...] CDT Gender Identity Female 12/21/2020 11:03 AM HORTICULTURAL MANAGER Sexual Orientation Straight 12/21/2020 11 :03 AM HORTICULTURAL MANAGER Occupation Industry Job Start Date Job End Date [employer] Not on file Not on file Not on file Last Filed Vital Signs Vital Sign Reading Time Taken Comments Blood Pressure 129/81 10/07/2024 10:09 AM HORTICULTURAL MANAGER Pulse 86 10/07/2024 10:09 AM HORTICULTURAL MANAGER Temperature 37.2 C (99 F) 08/25/2024 7:10 AM CDT Respiratory Rate - - Oxygen Saturation 97% 10/07/2024 10:09 AM HORTICULTURAL MANAGER Inhaled Oxygen Concentration - - Weight 96.8 kg (213 lb 6.4 oz) 10/07/2024 10:09 AM HORTICULTURAL MANAGER Height 162.6 cm (5' 4 ) 10/07/2024 10:09 AM HORTICULTURAL MANAGER Body Mass Index 36.63 10/07/2024 10:09 AM HORTICULTURAL MANAGER Plan of Treatment Not on file Procedures Procedure Name Priority Date/Time Associated Diagnosis Comments HM PAP SMEAR Routine 09/25/2019 from Last 3 Months or Most Recently Relevant to Health Maintenance Results * HM PAP SMEAR (09/25/2019) us Historical Provider MD HEALTH MAINTENANCE Final Result from Last 3 Months or Most Recently Relevant to Health Maintenance Insurance [id number] [place] [id number] [place] [address] Care Teams Filter Plant Supervisor Relationship Specialty Start Date End Date Ivania Huang PA [address] [facility] [address] [place] [address] PCP - General Internal Medicine 06/22/20
--- OUTSIDE RECORDS SUMMARY | 2025-03-16 14:15 | XMS_ITS | Clinical Summary ---
Author Organization [facility] [address] [facility] Address [address] [place] [address] Care Team Providers Care Therapy Coordinator Name Role Phone Ivania Huang Primary Care Provider [phone]- [phone] Allergies No known active allergies Medications vit-iron [...] her to follow back up with her binder and wrapper packer for infertility assistance Assessment & Plan (08/02/2022 [...] continue with the metformin. Follow up with binder and wrapper packer is already scheduled in the next few [...] the week. She plans to go to [facility]. She is to get labs done at [facility] to check for anemia as [...] 12/21/2020 Assessment & Plan (12/21/2020 12:12 PM COLOR GRINDER): See pcos PCOS (polycystic ovarian syndrome) 12/21/2020 [...] her to follow back up with her binder and wrapper packer for infertility assistance Assessment & Plan (05/20/2024 [...] ovulating. Assessment & Plan (11/23/2021 12:01 PM COLOR GRINDER): Continue the anti androgen it medications of [...] menorrhagia Assessment & Plan (12/21/2020 12:11 PM COLOR GRINDER): Discussed PCOS at length including pathophys, diagnosis criteria, treatment options and ferry terminal agent sequela not limited to Metabolic syndrome, DM, [...] 11/20/2020 Assessment & Plan (12/21/2020 12:12 PM COLOR GRINDER): See pcos Assessment & Plan (11/20/2020 8:37 PM COLOR GRINDER): Check labs for DM/PCOS. Hirsutism 11/20/2020 Assessment & Plan (12/21/2020 12:12 PM COLOR GRINDER): See pcos Assessment & Plan (11/20/2020 8:37 PM COLOR GRINDER): Check labs for PCOS Irregular menses 11/20/2020 [...] mg daily. She did an ovulation kit [id number] this last month and it too was positive. Continue with PCOS treatment. Assessment & Plan (03/08/2021 1:47 PM CDT): Secondary to PCOS Assessment & Plan (12/21/2020 11:59 AM COLOR GRINDER): See PCOS Assessment & Plan (11/20/2020 8:37 PM COLOR GRINDER): Has multiple sxs that are suspicious for PCOS. Discussed PCOS at length including pathophys, treatment options and ferry terminal agent sequela not limited to Metabolic syndrome, DM, [...] without positive test may consider referral to binder and wrapper packer. Advise once she has a positive test [...] understanding Assessment & Plan (12/21/2020 12:12 PM COLOR GRINDER): Start PNV since not actively preventing Assessment & Plan (11/20/2020 8:39 PM COLOR GRINDER): Patient is not interested in control. Is [...] use. Assessment & Plan (11/23/2021 12:02 PM COLOR GRINDER): Asthma stable. Requests refills of the albuterol for p.r.n. use. Assessment & Plan (11/20/2020 8:36 PM COLOR GRINDER): Asthma has been stable. Usually weather/seasonal. Has [...] 11/23/20212021 Assessment & Plan (11/23/2021 7:47 AM COLOR GRINDER): Obesity is unchanged. Discussed the patient's BMI. The BMI is above average. BMI management plan is completed. BMI Follow-up includes: nutrition counseling, exercise counseling and education provided. BMI 35.0-35.9,adult 11/23/2021 04/09/20 Assessment & Plan (11/23/2021 7:47 AM COLOR GRINDER): Obesity is unchanged. Discussed the patient's BMI. [...] UTI. Assessment & Plan (12/21/2020 12:14 PM COLOR GRINDER): Pt presents with dysuria. Unable to obtain urine same as video visit. Will empirically treat but if sxs don't improve/resolve, will need to followup in the office. Antibiotic to pharmacy. Reviewed bladder care. BMI 35.0-35.9,adult 11/17/2020 03/08/20 Assessment & Plan (11/17/2020 2:29 PM COLOR GRINDER): Obesity is unchanged. Discussed the patient's BMI. [...] CDT Gender Identity Female 12/21/2020 11:03 AM COLOR GRINDER Sexual Orientation Straight 12/21/2020 11 :03 AM COLOR GRINDER Occupation Industry Job Start Date Job End Date [employer] Not on file Not on file Not on file Obstetrics History Last Filed Vital Signs Vital Sign Reading Time Taken Comments Blood Pressure 129/81 10/07/2024 10:09 AM COLOR GRINDER Pulse 86 10/07/2024 10:09 AM COLOR GRINDER Temperature 37.2 C (99 F) 08/25/2024 7:10 AM CDT Respiratory Rate - - Oxygen Saturation 97% 10/07/2024 10:09 AM COLOR GRINDER Inhaled Oxygen Concentration - - Weight 96.8 kg (213 lb 6.4 oz) 10/07/2024 10:09 AM COLOR GRINDER Height 162.6 cm (5' 4 ) 10/07/2024 10:09 AM COLOR GRINDER Body Mass Index 36.63 10/07/2024 10:09 AM COLOR GRINDER Plan of Treatment Health Maintenance Due Date [...] Most Recently Relevant to Health Maintenance Insurance [facility] Care Teams Therapy Coordinator Relationship Specialty Start Date End Date Ivania Huang PA [address] [facility] [address] [place] [address] PCP - General Internal Medicine 06/22/20
--- OUTSIDE RECORDS SUMMARY | 2025-03-16 14:15 | XMS_ITS | Clinical Summary ---
Author Organization [facility] [address] Address [address] [place] [address] Phone Care Team Providers Care Manager Of Change Name Role Phone Wai Kaur Primary Care Provider [phone] Social History Tobacco Use Types Packs/Day Years [...] Insurance [employer] [place] Care Teams Manager Of Change Relationship Specialty Start Date End Date Wai Kaur PA [address] [place] [address] PCP - General Physician Waiter/Waitress Third Class 06/23/18
== END 2025-03-16 13:58 | disposition home or self-care (01) ==
PROVIDERS: PCP Physician Assistant; Visit Provider Obstetrics & Gynecology Gynecology
DX: Z36.9 Encounter for antenatal screening, unspecified (principal)
CPT/HCPCS: 76805

== ENCOUNTER 2025-04-26 09:57 | Outpatient (CLI) | payer OTHER, SELFPAY ==
--- NOTE | ~2025-04-26 | US_ITS ---
EXAMINATION: US OB follow up DATE: 04/26/2025 10:49 INDICATION: Expected size greater than expected for estimated gestational age at the transition from the second and third trimester TECHNIQUE: Real-time ultrasound of the pelvis was performed. The interpreting radiologist was not pre sent for the study. COMPARISON: 03/16/2025 FINDINGS: There is a single living fetus in variable presentation. The placenta is anterior and not low-lying. heart rate is 138 beats per minute (bpm). The amniotic fluid index is 19.6 cm, which is jorge l. (5th%-95%: 9.7-22.3 cm at 26 weeks estimated gestational age). Normal cervical length of 5.6 cm. The following biometric data were obtained: BPD: 6.7 cm -> 27 weeks 0 days Head circumference: 24.9 cm -> 27 weeks 0 days Abdominal circumference: 23.0 cm -> 27 weeks 3 days Femur length: 4.9 cm -> 26 weeks 4 days These measurements are concordant. Head circumference to abdominal circumference ratio: 1.08 (normal range 1.05-1.22). Estimated weight: 1016 g (+/-) 152 g or 2 lbs. 4 oz. (+/-) 5 oz. IMPRESSION: 1. Single living fetus in stable presentation with heart rate of 138 bpm. 2. Normal amniotic fluid index of 19.6 cm. 3. Estimated weight is 45th percentile by Hadlock criteria when 07/27/2025 is used as the estima melody date of delivery (ALKA). Please correlate with clinical information or earlier ultrasounds for mos t accurate ALKA. Reviewed, dictated and finalized at location A. IMPRESSION: 1. Single living fetus in stable presentation with heart rate of 138 bpm. 2. Normal amniotic fluid index of 19.6 cm. 3. Estimated weight is 45th percentile by Hadlock criteria when 07/27/2025 is used as the estimated date of delivery (ALKA). Please correlate with clinica l information or earlier ultrasounds for most accurate ALKA.
== END 2025-04-26 09:58 | disposition home or self-care (01) ==
PROVIDERS: PCP Physician Assistant; Visit Provider Obstetrics & Gynecology Gynecology
DX: O36.63X0 Maternal care for excessive fetal growth, third trimester, not applicable or unspecified (principal); Z3A.00 Weeks of gestation of pregnancy not specified
CPT/HCPCS: 76816

== ENCOUNTER 2025-05-25 09:13 | Outpatient (CLI) | payer OTHER, SELFPAY ==
--- NOTE | ~2025-05-25 | US_ITS ---
EXAM: US OB follow up - 05/25/2025 9:40 CDT History: 29 years old Female with size less than dates Comparison: None available Technique Transabdominal scanning was performed. Findings There is a single live fetus in vertex presentation and longitudinal lie. The heart rate is 142 bpm. The current gestational age is 31 weeks 3 days. Expected date of delivery is July 24, 2025. measurements are as follows: Biparietal diameter: 7.88 cm, 28 weeks 4 days to 34 weeks 5 days Head circumference: 28.25 cm, 28 weeks 0 days to 34 weeks 0 days Abdominal circumference: 27.55 cm, 28 weeks 5 days to 34 weeks 4 days Femur length: 6.01 cm, 28 weeks 2 days to 34 weeks 2 days HC/AC: 1.03, within normal limits. Estimated weight: 1769g +/- 265.3 g which is at 53rd percentile. Utilizing the date of delivery obtained from the initial scan, growth of the BPD, HC, AC, femur and h umerus is within normal limits. The amount of amniotic fluid is within normal limits. Amniotic fluid index is 12.6 cm which is between the 8.8 cm-5th and 23.8 cm-95th percentiles for this stage of . The placenta is anterior with no evidence of placenta previa. Impression: Single intrauterine with normal growth, as detailed above. Reviewed, dictated and finalized at location A. Impression: Single intrauterine with normal growth, as detailed above.
--- OUTSIDE RECORDS SUMMARY | 2025-05-25 09:22 | XMS_ITS ---
Author Organization [facility] (ClinicalSummary Clone) Address Unknown Care Team Providers Care Technical Sales Engineer Name Role Phone Unavailable Primary Care Physician Unavailab le Results * [UNITY] ANEUPLOIDY NIPT Performed by: Onepager Component Value Range Date Fraction 2.9% 01/24/2025 03 :02 pm UTC Sex Chromosome Aneuploidy NOT DETECTED 03:02 pm UTC Monosomy X LOW RISK <1 in 10,000 2024 03:02 pm UTC Trisomy 13 LOW RISK <1 in 10,000 2024 03:02 pm UTC Trisomy 18 LOW RISK <1 in 10,000 2024 03:02 pm UTC Trisomy 21 LOW RISK <1 in 10,000 2024 03:02 pm UTC Sex FEMALE 01/24/2025 03:0 2 pm UTC Gestation FINE 01/25/20 25 03:02 pm UTC For detailed report, see PDF See PDF 01/24/2025 03:02 pm UTC 01/24/2025 03:0 2 pm UTC Social History Observation Value Start Date End Date
--- OUTSIDE RECORDS SUMMARY | 2025-05-25 09:22 | XMS_ITS | Referral Summary ---
Author Organization [facility] [address] Address [address] [place] [address] Care Team Providers Care Aegis Operations Specialist Name Role Phone Ivania Huang Primary Care Provider [phone] Encounters Date Type Department Care Team Description 04/26/2025 Orders Only [facility] Health Information Management [address] [place] [address] Scanning, Provider 03/16/2025 Orders Only [facility] Health Information Management [address] [place] [address] Scanning, Provider 03/02/2025 Orders Only [facility] Health Information Management [address] [place] [id number] Scanning, Provider from Last 3 Months Allergies No known active allergies Medications vit-iron fum-folic ( Vitamin) 27 mg iron- 800 mcg tablet Take 1 tablet by mouth daily 90 tablet 3 2 Active metFORMIN XR (GLUCOPHAGE XR) 500 mg 24 hr tabletIndications :PCOS (polycystic ovarian syndrome) Take 1 tablet (500 mg total) by mouth 2 (two) times a day 180 tablet 2 4 Active medroxyPROGESTERo ne (PROVERA) 10 mg tablet Take 1 tablet (10 mg total) by mouth daily 10 tablet 4 Active albuterol HFA (PROVENTIL HFA,VENTOLIN HFA,PROAIR HFA) 90 mcg/actuation inhalerIndication s:Mild intermittent asthma without complication INHALE 2 PUFFS BY MOUTH EVERY 6 HOURS NEEDED FOR SHORTNESS OF BREATH OR WHEEZING 18 g 3 5 Active Active Problems Problem Noted Date Diagnosed Date [...] her to follow back up with her carpenter cradle and dolly for infertility assistance Assessment & Plan (08/02/2022 [...] continue with the metformin. Follow up with carpenter cradle and dolly is already scheduled in the next few [...] the week. She plans to go to [facility]. She is to get labs done at [facility] to check for anemia as well as [...] 12/21/2020 Assessment & Plan (12/21/2020 12:12 PM CASE CONSULTANT): See pcos PCOS (polycystic ovarian syndrome) 12/21/2020 [...] her to follow back up with her carpenter cradle and dolly for infertility assistance Assessment & Plan (05/20/2024 [...] ovulating. Assessment & Plan (11/23/2021 12:01 PM CASE CONSULTANT): Continue the anti androgen it medications of [...] menorrhagia Assessment & Plan (12/21/2020 12:11 PM CASE CONSULTANT): Discussed PCOS at length including pathophys, diagnosis criteria, treatment options and fpc sequela not limited to Metabolic syndrome, DM, [...] 11/20/2020 Assessment & Plan (12/21/2020 12:12 PM CASE CONSULTANT): See pcos Assessment & Plan (11/20/2020 8:37 PM CASE CONSULTANT): Check labs for DM/PCOS. Hirsutism 11/20/2020 Assessment & Plan (12/21/2020 12:12 PM CASE CONSULTANT): See pcos Assessment & Plan (11/20/2020 8:37 PM CASE CONSULTANT): Check labs for PCOS Irregular menses 11/20/2020 [...] mg daily. She did an ovulation kit [id number] this last month and it too was positive. Continue with PCOS treatment. Assessment & Plan (03/08/2021 1:47 PM CDT): Secondary to PCOS Assessment & Plan (12/21/2020 11:59 AM CASE CONSULTANT): See PCOS Assessment & Plan (11/20/2020 8:37 PM CASE CONSULTANT): Has multiple sxs that are suspicious for PCOS. Discussed PCOS at length including pathophys, treatment options and fpc sequela not limited to Metabolic syndrome, DM, [...] intercourse and if she comes back in October/November without positive test may consider referral to carpenter cradle and dolly. Advise once she has a positive test [...] understanding Assessment & Plan (12/21/2020 12:12 PM CASE CONSULTANT): Start PNV since not actively preventing Assessment & Plan (11/20/2020 8:39 PM CASE CONSULTANT): Patient is not interested in control. Is [...] use. Assessment & Plan (11/23/2021 12:02 PM CASE CONSULTANT): Asthma stable. Requests refills of the albuterol for p.r.n. use. Assessment & Plan (11/20/2020 8:36 PM CASE CONSULTANT): Asthma has been stable. Usually weather/seasonal. Has [...] 11/23/20212021 Assessment & Plan (11/23/2021 7:47 AM CASE CONSULTANT): Obesity is unchanged. Discussed the patient's BMI. The BMI is above average. BMI management plan is completed. BMI Follow-up includes: nutrition counseling, exercise counseling and education provided. BMI 35.0-35.9,adult 11/23/2021 04/09/20 Assessment & Plan (11/23/2021 7:47 AM CASE CONSULTANT): Obesity is unchanged. Discussed the patient's BMI. The BMI is above average. BMI management plan is completed. BMI Follow-up includes: nutrition counseling, exercise counseling and education provided. BMI 35.0-35.9,adult 05/26/2021 11/23/19 22 Assessment & Plan (05/26/2021 7:16 AM CDT): [...] UTI. Assessment & Plan (12/21/2020 12:14 PM CASE CONSULTANT): Pt presents with dysuria. Unable to obtain urine same as video visit. Will empirically treat but if sxs don't improve/resolve, will need to followup in the office. Antibiotic to pharmacy. Reviewed bladder care. BMI 35.0-35.9,adult 11/17/2020 03/08/20 21 Assessment & Plan (11/17/2020 2:29 PM CASE CONSULTANT): Obesity is unchanged. Discussed the patient's BMI. [...] CDT Gender Identity Female 12/21/2020 11:03 AM CASE CONSULTANT Sexual Orientation Straight 12/21/2020 11 :03 AM CASE CONSULTANT Occupation Industry Job Start Date Job End Date [employer] Not on file Not on file Not on file Last Filed Vital Signs Vital Sign Reading Time Taken Comments Blood Pressure 129/81 10/07/2024 10:09 AM CASE CONSULTANT Pulse 86 10/07/2024 10:09 AM CASE CONSULTANT Temperature 37.2 C (99 F) 08/25/2024 7:10 AM CDT Respiratory Rate - - Oxygen Saturation 97% 10/07/2024 10:09 AM CASE CONSULTANT Inhaled Oxygen Concentration - - Weight 96.8 kg (213 lb 6.4 oz) 10/07/2024 10:09 AM CASE CONSULTANT Height 162.6 cm (5' 4) 10/07/2024 10:09 AM CASE CONSULTANT Body Mass Index 36.63 10/07/2024 10:09 AM CASE CONSULTANT Plan of Treatment Not on file Procedures Procedure Name Priority Date/Time Associated Diagnosis Comments SCAN - RADIOLOGY/IMAGING 04/26/2025 SCAN - RADIOLOGY/IMAGING 03/16/2025 SCAN - RADIOLOGY/IMAGING 03/02/2025 HM PAP SMEAR Routine 09/25/2019 from Last 3 Months or Most Recently Relevant to Health Maintenance Results * SCAN - RADIOLOGY/IMAGING (04/26/2025) Anatomical Region Laterality Modality Other us Provider Scanning Final Result * SCAN - RADIOLOGY/IMAGING (03/16/2025) Anatomical Region Laterality Modality Other us Provider Scanning Final Result * SCAN - RADIOLOGY/IMAGING (03/02/2025) Anatomical Region Laterality Modality Other us Provider Scanning Edited Result - Final * HM PAP SMEAR (09/25/2019) us Historical Provider MD HEALTH MAINTENANCE Final Result from Last 3 Months or Most Recently Relevant to Health Maintenance Insurance [facility] Care Teams Aegis Operations Specialist Relationship Specialty Start Date End Date Ivania Huang PA [address] [address] PCP - General Internal Medicine 06/22/20
--- OUTSIDE RECORDS SUMMARY | 2025-05-25 09:22 | XMS_ITS | Encounter Summary ---
Author Organization [facility] Healthcare Address [address] [place] [address] Care Team Providers Care Building Services Supervisor Name Role Phone Ivania Huang Primary Care Provider [phone]- [phone] Encounter Details Date Type Department Care Team (Late st Contact Info) Description 03/16/2025 Orders Only [facility] Health Information Management [address] [place] [phone] Scanning, Provider Social History Tobacco Use Types Packs/Day Years Used Date Smoking Tobacco: Never Passive Smoke Exposure: Never Smokeless Tobacco: Never Alcohol Use Standard Drinks/Week Comments Never 0 [...] CDT Gender Identity Female 12/21/2020 11:03 AM PARIMUTUEL TICKET CASHIER Sexual Orientation Straight 12/21/2020 11 :03 AM PARIMUTUEL TICKET CASHIER Occupation Industry Job Start Date Job End Date [employer] Not on file Not on file Not on file documented as of this encounter Plan of Treatment Not on file documented as of this encounter Procedures Procedure Name Priority Date/Time Associated Diagnosis Comments SCAN - RADIOLOGY/IMAGING 03/16/2025 documented in this encounter Results * SCAN - RADIOLOGY/IMAGING (03/16/2025) Anatomical Region Laterality Modality Other us Provider Scanning Final Result documented in this encounter Visit Diagnoses Not on filedocumented in this encounter Care Teams Building Services Supervisor Relationship Specialty Start Date End Date Ivania Huang PA [address] [address] PCP - General Internal Medicine 06/22/20 documented as of this encounter
--- OUTSIDE RECORDS SUMMARY | 2025-05-25 09:22 | XMS_ITS | Clinical Summary ---
Author Organization [facility] [address] [facility] Address [address] [place] [address] Care Team Providers Care Senior Mechanical Designer Name Role Phone Ivania Huang Primary Care Provider [phone]- [phone] Allergies No known active allergies Medications vit-iron [...] her to follow back up with her gun synchronizer for infertility assistance Assessment & Plan (08/02/2022 [...] continue with the metformin. Follow up with gun synchronizer is already scheduled in the next few [...] the week. She plans to go to [facility]. She is to get labs done at [facility] to check for anemia as well as [...] 12/21/2020 Assessment & Plan (12/21/2020 12:12 PM BOAT OPERATOR): See pcos PCOS (polycystic ovarian syndrome) 12/21/2020 [...] her to follow back up with her gun synchronizer for infertility assistance Assessment & Plan (05/20/2024 [...] ovulating. Assessment & Plan (11/23/2021 12:01 PM BOAT OPERATOR): Continue the anti androgen it medications of [...] menorrhagia Assessment & Plan (12/21/2020 12:11 PM BOAT OPERATOR): Discussed PCOS at length including pathophys, diagnosis criteria, treatment options and intermediate designer sequela not limited to Metabolic syndrome, DM, [...] 11/20/2020 Assessment & Plan (12/21/2020 12:12 PM BOAT OPERATOR): See pcos Assessment & Plan (11/20/2020 8:37 PM BOAT OPERATOR): Check labs for DM/PCOS. Hirsutism 11/20/2020 Assessment & Plan (12/21/2020 12:12 PM BOAT OPERATOR): See pcos Assessment & Plan (11/20/2020 8:37 PM BOAT OPERATOR): Check labs for PCOS Irregular menses 11/20/2020 [...] mg daily. She did an ovulation kit [id number] this last month and it too was positive. Continue with PCOS treatment. Assessment & Plan (03/08/2021 1:47 PM CDT): Secondary to PCOS Assessment & Plan (12/21/2020 11:59 AM BOAT OPERATOR): See PCOS Assessment & Plan (11/20/2020 8:37 PM BOAT OPERATOR): Has multiple sxs that are suspicious for PCOS. Discussed PCOS at length including pathophys, treatment options and skilled nursing sequela not limited to Metabolic syndrome, DM, [...] without positive test may consider referral to gun synchronizer. Advise once she has a positive test [...] understanding Assessment & Plan (12/21/2020 12:12 PM BOAT OPERATOR): Start PNV since not actively preventing Assessment & Plan (11/20/2020 8:39 PM BOAT OPERATOR): Patient is not interested in control. Is [...] use. Assessment & Plan (11/23/2021 12:02 PM BOAT OPERATOR): Asthma stable. Requests refills of the albuterol for p.r.n. use. Assessment & Plan (11/20/2020 8:36 PM BOAT OPERATOR): Asthma has been stable. Usually weather/seasonal. Has [...] 11/23/20212021 Assessment & Plan (11/23/2021 7:47 AM BOAT OPERATOR): Obesity is unchanged. Discussed the patient's BMI. The BMI is above average. BMI management plan is completed. BMI Follow-up includes: nutrition counseling, exercise counseling and education provided. BMI 35.0-35.9,adult 11/23/2021 04/09/20 Assessment & Plan (11/23/2021 7:47 AM BOAT OPERATOR): Obesity is unchanged. Discussed the patient's BMI. [...] UTI. Assessment & Plan (12/21/2020 12:14 PM BOAT OPERATOR): Pt presents with dysuria. Unable to obtain urine same as video visit. Will empirically treat but if sxs don't improve/resolve, will need to followup in the office. Antibiotic to pharmacy. Reviewed bladder care. BMI 35.0-35.9,adult 11/17/2020 03/08/20 Assessment & Plan (11/17/2020 2:29 PM BOAT OPERATOR): Obesity is unchanged. Discussed the patient's BMI. The BMI is above average. BMI management plan is completed. BMI Follow-up includes: nutrition counseling, exercise counseling and education provided. Encounters Date Type Department Care Team Description 04/26/2025 Orders Only [facility] Health Information Management [address] [place] [id number] Scanning, Provider 03/16/2025 Orders Only [facility] Health Information Management [address] [place] [address] Scanning, Provider 03/02/2025 Orders Only [facility] Health Information Management [address] [place] [phone] Scanning, Provider from Last 3 Months Immunizations Immunization Administration Dates Next Due DTP [...] CDT Gender Identity Female 12/21/2020 11:03 AM BOAT OPERATOR Sexual Orientation Straight 12/21/2020 11 :03 AM BOAT OPERATOR Occupation Industry Job Start Date Job End Date [employer] Not on file Not on file Not on file Obstetrics History Last Filed Vital Signs Vital Sign Reading Time Taken Comments Blood Pressure 129/81 10/07/2024 10:09 AM BOAT OPERATOR Pulse 86 10/07/2024 10:09 AM BOAT OPERATOR Temperature 37.2 C (99 F) 08/25/2024 7:10 AM CDT Respiratory Rate - - Oxygen Saturation 97% 10/07/2024 10:09 AM BOAT OPERATOR Inhaled Oxygen Concentration - - Weight 96.8 kg (213 lb 6.4 oz) 10/07/2024 10:09 AM BOAT OPERATOR Height 162.6 cm (5' 4) 10/07/2024 10:09 AM BOAT OPERATOR Body Mass Index 36.63 10/07/2024 10:09 AM BOAT OPERATOR Plan of Treatment Health Maintenance Due Date Last Done Comments Hepatitis C Screening 1995 Regular Well Visit/Exam 18-64 2013 Pneumococcal vaccine <65 (1 of 2 - PCV) 2014 Cervical Cancer Screening 09/25/2020 09/25/2019 Influenza Vaccine (#1) 2025 Depression Screening 08/25/2025 08/25/2024, 05/20/2024, 02/24/2024, [...] Most Recently Relevant to Health Maintenance Insurance Care Teams Senior Mechanical Designer Relationship Specialty Start Date End Date Ivania Huang PA [address] [address] PCP - General Internal Medicine 06/22/20
--- OUTSIDE RECORDS SUMMARY | 2025-05-25 09:22 | XMS_ITS | Encounter Summary ---
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 Job 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 Not on file Not on file documented as of this encounter Plan of Treatment Not on file documented as of this encounter Procedures Procedure Name Priority Date/Time Associated Diagnosis Comments SCAN - RADIOLOGY/IMAGING 03/02/2025 documented in this encounter Results * SCAN - RADIOLOGY/IMAGING (03/02/2025) Anatomical Region Laterality Modality Other us Provider Scanning Edited Result - Final documented in this encounter Visit Diagnoses Not on filedocumented in this encounter Care Teams Chief Financial Officer Relationship Specialty Start Date End Date Ivania Huang PA [address] [facility] [address] [place] [address] PCP - General Internal Medicine 06/22/20 documented as of this encounter
== END 2025-05-25 09:14 | disposition home or self-care (01) ==
PROVIDERS: PCP Physician Assistant; Visit Provider Obstetrics & Gynecology Gynecology
DX: O36.63X0 Maternal care for excessive fetal growth, third trimester, not applicable or unspecified (principal); Z3A.00 Weeks of gestation of pregnancy not specified
CPT/HCPCS: 76816

== ENCOUNTER 2025-07-02 11:04 | Observation (INO) | payer OTHER, SELFPAY ==
[2025-07-02] VITALS (27 sets, daily range): BP systolic 114–139; BP diastolic 59–72; PULSE 84–108; O2SAT 98–100; BMI 36.7
--- OUTSIDE RECORDS SUMMARY | 2025-07-02 11:13 | XMS_ITS | Clinical Summary ---
Author Organization [facility] [address] Address [address] [place] [address] Phone Care Team Providers Care Husker Operator Name Role Phone Wai Kaur Primary Care Provider [phone] Social History Tobacco Use Types Packs/Day Years [...] (1 of 3 - 19+ 3-dose series) 07/06 CERVICAL CANCER SCREENING 2016 HPV/Cotest (21-29) 2016 PAP SMEAR 2016 HPV VACCINES (1 - 3-dose SCDM series) 2022 INFLUENZA VACCINE (#1) 2025 HPV/Cotest (30-65) 2025 DTAP/TDAP/TD VACCINES (2 - Td or Tdap) 11/04/2028 Insurance [employer] [place] Care Teams Husker Operator Relationship Specialty Start Date End Date Wai Kaur PA [address] [place] [address] PCP - General Physician Final Cleaner 06/23/18
--- OUTSIDE RECORDS SUMMARY | 2025-07-02 11:13 | XMS_ITS | Encounter Summary ---
Author Organization [facility] Healthcare Address [address] [place] [address] Care Team Providers Care Metal Tester Name Role Phone Ivania Huang Primary Care Provider [phone] Encounter Details Date Type Department Care Team (Late st Contact Info) Description 03/02/2025 Orders Only [facility] [place] Information Management [address] [place] [address] Scanning, Provider Social History Tobacco Use [...] CDT Gender Identity Female 12/21/2020 11:03 AM SETTLEMENT PROCESSOR Sexual Orientation Straight 12/21/2020 11 :03 AM SETTLEMENT PROCESSOR 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
--- OUTSIDE RECORDS SUMMARY | 2025-07-02 11:13 | XMS_ITS ---
Author Organization [facility] (ClinicalSummary Clone) Address Unknown Care Team Providers Care Aerial Lineman Name Role Phone Unavailable Primary Care Physician Unavailab le Results * [UNITY] ANEUPLOIDY NIPT Performed by: LiveAction Component Value Range Date Fraction 2.9% 01/24/2025 [...]
--- OUTSIDE RECORDS SUMMARY | 2025-07-02 11:13 | XMS_ITS | Clinical Summary ---
Author Organization [facility] [place] [address] [facility] Address [address] [place] [address] Care Team Providers Care Test Engineering Intern Name Role Phone Ivania Huang Primary Care Provider [phone]- [phone] Allergies No known active allergies Medications vit-iron [...] her to follow back up with her breaster for infertility assistance Assessment & Plan (08/02/2022 [...] continue with the metformin. Follow up with breaster is already scheduled in the next few [...] the week. She plans to go to [facility]. She is to get labs done at [facility] to check for anemia as [...] 12/21/2020 Assessment & Plan (12/21/2020 12:12 PM WHEEL WORKER): See pcos PCOS (polycystic ovarian syndrome) 12/21/2020 [...] her to follow back up with her breaster for infertility assistance Assessment & Plan (05/20/2024 [...] ovulating. Assessment & Plan (11/23/2021 12:01 PM WHEEL WORKER): Continue the anti androgen it medications of [...] menorrhagia Assessment & Plan (12/21/2020 12:11 PM WHEEL WORKER): Discussed PCOS at length including pathophys, diagnosis criteria, treatment options and senior care sequela not limited to Metabolic syndrome, DM, [...] 11/20/2020 Assessment & Plan (12/21/2020 12:12 PM WHEEL WORKER): See pcos Assessment & Plan (11/20/2020 8:37 PM WHEEL WORKER): Check labs for DM/PCOS. Hirsutism 11/20/2020 Assessment & Plan (12/21/2020 12:12 PM WHEEL WORKER): See pcos Assessment & Plan (11/20/2020 8:37 PM WHEEL WORKER): Check labs for PCOS Irregular menses 11/20/2020 [...] mg daily. She did an ovulation kit [id number] this last month and it too was positive. Continue with PCOS treatment. Assessment & Plan (03/08/2021 1:47 PM CDT): Secondary to PCOS Assessment & Plan (12/21/2020 11:59 AM WHEEL WORKER): See PCOS Assessment & Plan (11/20/2020 8:37 PM WHEEL WORKER): Has multiple sxs that are suspicious for PCOS. Discussed PCOS at length including pathophys, treatment options and senior care sequela not limited to Metabolic syndrome, DM, [...] without positive test may consider referral to breaster. Advise once she has a positive test [...] understanding Assessment & Plan (12/21/2020 12:12 PM WHEEL WORKER): Start PNV since not actively preventing Assessment & Plan (11/20/2020 8:39 PM WHEEL WORKER): Patient is not interested in control. Is [...] use. Assessment & Plan (11/23/2021 12:02 PM WHEEL WORKER): Asthma stable. Requests refills of the albuterol for p.r.n. use. Assessment & Plan (11/20/2020 8:36 PM WHEEL WORKER): Asthma has been stable. Usually weather/seasonal. Has [...] 11/23/20212021 Assessment & Plan (11/23/2021 7:47 AM WHEEL WORKER): Obesity is unchanged. Discussed the patient's BMI. The BMI is above average. BMI management plan is completed. BMI Follow-up includes: nutrition counseling, exercise counseling and education provided. BMI 35.0-35.9,adult 11/23/2021 04/09/20 Assessment & Plan (11/23/2021 7:47 AM WHEEL WORKER): Obesity is unchanged. Discussed the patient's BMI. [...] UTI. Assessment & Plan (12/21/2020 12:14 PM WHEEL WORKER): Pt presents with dysuria. Unable to obtain urine same as video visit. Will empirically treat but if sxs don't improve/resolve, will need to followup in the office. Antibiotic to pharmacy. Reviewed bladder care. BMI 35.0-35.9,adult 11/17/2020 03/08/20 Assessment & Plan (11/17/2020 2:29 PM WHEEL WORKER): Obesity is unchanged. Discussed the patient's BMI. The BMI is above average. BMI management plan is completed. BMI Follow-up includes: nutrition counseling, exercise counseling and education provided. Encounters Date Type Department Care Team Description 05/25/2025 Orders Only [facility] [place] Health Information Management [address] [place] [address] Scanning, Provider 04/26/2025 Orders Only [facility] [place] Health Information Management [address] [place] [address] Scanning, Provider from Last 3 Months Immunizations [...] CDT Gender Identity Female 12/21/2020 11:03 AM WHEEL WORKER Sexual Orientation Straight 12/21/2020 11 :03 AM WHEEL WORKER Occupation Industry Job Start Date Job End Date [employer] Not on file Not on file Not on file Obstetrics History Last Filed Vital Signs Vital Sign Reading Time Taken Comments Blood Pressure 129/81 10/07/2024 10:09 AM WHEEL WORKER Pulse 86 10/07/2024 10:09 AM WHEEL WORKER Temperature 37.2 C (99 F) 08/25/2024 7:10 AM CDT Respiratory Rate - - Oxygen Saturation 97% 10/07/2024 10:09 AM WHEEL WORKER Inhaled Oxygen Concentration - - Weight 96.8 kg (213 lb 6.4 oz) 10/07/2024 10:09 AM WHEEL WORKER Height 162.6 cm (5' 4) 10/07/2024 10:09 AM WHEEL WORKER Body Mass Index 36.63 10/07/2024 10:09 AM WHEEL WORKER Plan of Treatment Health Maintenance Due Date [...] Date/Time Associated Diagnosis Comments SCAN - RADIOLOGY/IMAGING 05/25/2025 SCAN - RADIOLOGY/IMAGING 04/26/2025 HM PAP SMEAR Routine 09/25/2019 from Last 3 Months or Most Recently Relevant to Health Maintenance Results * SCAN - RADIOLOGY/IMAGING (05/25/2025) Anatomical Region Laterality Modality Other us Provider Scanning Final Result * SCAN - RADIOLOGY/IMAGING (04/26/2025) Anatomical Region Laterality Modality Other us Provider Scanning Final Result * HM PAP SMEAR (09/25/2019) Historical Provider MD HEALTH MAINTENANCE Final Result from Last 3 Months or Most Recently Relevant to Health Maintenance Insurance [facility] [id number] [place] [address] [id number] [place] [address] Care Teams Test Engineering Intern Relationship Specialty Start Date End Date Ivania Huang PA [address] [place] [address] [address] [place] [address] PCP - General Internal Medicine 06/22/20
--- OUTSIDE RECORDS SUMMARY | 2025-07-02 11:13 | XMS_ITS | Encounter Summary ---
Author Organization [facility] Healthcare Address [address] [place] [address] Care Team Providers Care Lead Burner Name Role Phone Ivania Huang Primary Care Provider [phone]- [phone] Encounter Details Date Type Department Care Team (Late st Contact Info) Description 03/16/2025 Orders Only [facility] [place] Health Information Management [address] [place] [address] Scanning, Provider Social History Tobacco Use [...] CDT Gender Identity Female 12/21/2020 11:03 AM FRAME CATCHER Sexual Orientation Straight 12/21/2020 11 :03 AM FRAME CATCHER Occupation Industry Job Start Date Job End Date 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
--- NOTE | 2025-07-02 12:01 | OBADM ---
This patient, Danuta De La Cruz, admitted to the OB room OB Post 115 for observation. Patient/family oriented to hospital policies and general routines including ID bracelet, bed and alarms, visiting hours, pain management, procedures, bathroom and other care routines, personal items, smoking policy, room service/diet, and visiting hours. Patient/Family are encouraged to report perceived risks to care and to ask questions if they do not understand what they are told or what they should do.
--- NOTE | 2025-07-06 07:37 | PM.OBTRLD ---
OB - Triage/Final Diagnosis Visit Information Reason for evaluation: threatened labor Comments/Additional reasons for admission: I have assessed the risk for this patient, Danuta De La Cruz, and determined that she would benefit from observation care.
== END 2025-07-02 12:56 | disposition home or self-care (01) ==
PROVIDERS: Admitting Provider Obstetrics & Gynecology Gynecology; PCP Physician Assistant; Visit Provider Obstetrics & Gynecology Gynecology
DX: O47.03 False labor before 37 completed weeks of gestation, third trimester (principal); Z3A.36 36 weeks gestation of pregnancy
CPT/HCPCS: G0378; G0379

== ENCOUNTER 2025-07-23 05:15 | Inpatient (IN) | payer OTHER, SELFPAY ==
[2025-07-23] VITALS (195 sets, daily range): BP systolic 102–146; BP diastolic 36–95; PULSE 47–163; RESP 14–16; TEMP 36.3–37.2; O2SAT 71–100
--- OUTSIDE RECORDS SUMMARY | 2025-07-23 05:20 | XMS_ITS | Clinical Summary ---
Author Organization [facility] [address] - [address] Address [address] [place] [address] Phone Care Team Providers Care Tray Room Worker Name Role Phone Wai Kaur Primary Care Provider [phone] Social History Tobacco Use Types Packs/Day Years [...] 11/04/2028 Insurance [employer] [place] [place] Care Teams Tray Room Worker Relationship Specialty Start Date End Date Wai Kaur PA [address] [place] [address] PCP - General Physician Sequins Slinger 06/23/18
--- OUTSIDE RECORDS SUMMARY | 2025-07-23 05:20 | XMS_ITS | Encounter Summary ---
Author Organization 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
--- OUTSIDE RECORDS SUMMARY | 2025-07-23 05:20 | XMS_ITS | Encounter Summary ---
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 [address] [place] [address] PCP - General Internal Medicine 06/22/20 documented as of this encounter
--- NOTE | 2025-07-23 05:56 | LDADM ---
This patient, Danuta De La Cruz, was admitted to Labor/Delivery/Recovery 104 on 07/23/25 at 05:15. Plans for labor, pain management and were discussed with patient. Patient/family oriented to hospital policies and general routines including ID bracelet, bed and alarms, visiting hours, pain management, procedures, bathroom and other care routines, personal items, smoking policy, room service/diet and guest tray routines, infant security routines, and visiting hours. Patient/Family are encouraged to report perceived risks to care and to ask questions if they do not understand what they are told or what they should do. See OBIX for further documentation.
[2025-07-23] MEDS: LACTATED RINGERS 1,000 ML 125 ML IV CONT ×2 (07:15→16:03)
[2025-07-23 07:18] LABS: Hematocrit 35.8 % (37.0-47.0); Hemoglobin 10.8 g/dL (12.0-15.0); Immature Granulocyte Percent A 0.3 % (0-0.5); Immature Platelet Fraction Pct 8.9 % (0.9-11.2); Lymphocytes Absolute Auto 1.65 K/mm3 (0.9-3.2); Mean Corpuscular HGB Conc 30.2 g/dl (32-36); Mean Corpuscular Hemoglobin 21.3 pg (26-34); Mean Corpuscular Volume 70.5 fl (80-100); Nucleated Red Blood Cells Absolute Auto 0.000 K/mm3 (0.0-0.012); Nucleated Red Blood Cells Perc 0.0 % (0.0-0.2); Platelet Count Result 177 k/mm3 (150-375); Red Blood Count 5.08 M/mm3 (4.2-5.4); White Blood Count 6.2 K/mm3 (4.5-10.0)
[2025-07-23] MEDS: AMPICILLIN SODIUM 2 GM in SODIUM CHLORIDE 0.9% IV 100 ML 200 ML IVPB (07:22)
[2025-07-23] MEDS: OXYTOCIN 30 UNITS/NS 500 ML 30 UNITS/500 ML BAG IV CONT (07:26)
[2025-07-23 07:37] LABS: Hypochromasia Occasional; Microcytosis 1+ (NORMAL); Schistocytes None Seen
[2025-07-23 08:33] LABS: Syphilis IgG/IgM Antibody Non-Reactive (Nonreactive)
--- NOTE | 2025-07-23 09:50 | WPDOBADMIT ---
Obstetrics - Admit Note Admission Note: record reviewed. No pertinent additions to the history and/or any subsequent changes in the physical findings that are not consistent with the expected course of the were found. Additions to the history and/or subsequent changes in the physical findings follow. Here for MIL cervix 2/-3 clear AROM. Pitocin per protocol
[2025-07-23] MEDS: AMPICILLIN SODIUM 1 GM in SODIUM CHLORIDE 0.9% IV 50 ML 100 ML IVPB ×2 (11:25→15:34)
--- NOTE | 2025-07-23 16:35 | PM.OBPRVD ---
OB - Vaginal Delivery Note Procedure Delivery date: 07/23/25 Events: Elective Induction of Labor Induction method: AROM and Per Pitocin Protocol Delivery monitor: External FHT and External Uterine Route of delivery: Episiotomy description: None Laceration Description: Perineal - 1st Degree Delivery repair: vicryl (3-0) Specimen: No Quantitative Blood Loss (ml): 100 Anesthesia type: Local Disposition: Floor Complications: No immediate complications Baby Date of : 07/23/25 Gestational Age by Date: 39 Infant gender: Male presentation: vertex position: Right Occiput Anterior Placenta delivery description: Spontaneous Cord Vessel Description: 3 Vessels, Nuchal Cord and Delayed Cord Clamping score one minute: 8 score five minutes: 9
--- NOTE | 2025-07-23 16:36 | P.DS_ITS ---
DS: Admitting Diagnosis Discharge Date 07/24/25 Admitting Diagnosis IUP 39 2/7 for [facility] DS: Discharge Diagnosis Discharge Diagnosis (1) (normal spontaneous vaginal delivery): Code(s): O80 - Encounter for full-term uncomplicated delivery Status: Acute OB - DS: Summary OB Procedures : Ultrasound OB Procedures Intrapartum: Spontaneous Vag Delivery OB Procedures: : None Peripartum Data Delivery Method: Natural Vaginal Laceration Description: Perineal - 1st Degree Episiotomy description: None complications: none Status at Discharge Functional status at discharge: independent ambulation Overall status at discharge: patient is progressing back to baseline Time Spent with Patient Time attestation: Total time spent providing and/or coordinating discharge services: DS: Data Data Completed and Pending Labs on day of discharge: Labs from last 24 hours 07/23/25 07:07 WBC 6.2 RBC 5.08 Hgb 10.8 L Hct 35.8 L MCV 70.5 L MCH 21.3 L MCHC 30.2 L RDW 14.8 H Plt Count 177 MPV TNP Immature Gran % (Auto) 0.3 Neut % (Auto) 64.5 Lymph % (Auto) 26.7 Greene % (Auto) 7.1 Eos % (Auto) 0.8 Baso % (Auto) 0.6 Lymph # (Auto) 1.65 Greene # (Auto) 0.4 Eos # (Auto) 0.1 Baso # (Auto) 0.0 Abs Immat Gran (auto) 0.02 Absolute Neuts (auto) 4.0 Absolute Nucleated RBC 0.000 Band Neutrophils % Not Reportable Nucleated RBC % 0.0 Platelet Estimate Adequate % Immature Plt Fraction 8.9 Hypochromasia Occasional Microcytosis 1+ Schistocytes None seen Syphilis IgG/IgM Ab Non-reactive Blood Type O Positive Antibody Screen Negative Discharge Plan Discharge Attending physician on discharge: Lorie Low Discharging Clinician: Lorie Low Anticipated Discharge Date/Time: 07/25/25 16:37 Patient Disposition: Home Activity: may shower and pelvic rest Diet: regular Patient Instructions: Antibiotic Form Patient Language: Hong Konger Stand Alone Forms: General Discharge Information Follow-up/Referrals: Lorie Low MD [Physician, [facility]] - 6 Weeks Discharge Medications: Continued PNV no.95-ferrous fumarate-FA [] 28 mg iron- 800 mcg Tablet 1 tablet PO DAILY ferrous sulfate [Iron (ferrous sulfate)] 325 mg (65 mg iron) Tablet 325 mg PO DAILY ergocalciferol (vitamin D2) [Vitamin D2] 1,250 mcg (50,000 unit) Capsule 1,250 mcg PO WEEKLY ipratropium-albuterol 20-100 mcg/actuation Mist 1 puff INHALATION Q4H Date of admission: 07/23/25 05:15 Primary Care Provider: Reina,Ivania Admitting Provider: Lorie Low Attending physician on admission: Lorie Low Condition: Stable
[2025-07-23] MEDS: OXYTOCIN 30 UNITS/NS 500 ML 30 UNITS/500 ML BAG 999 UNITS IV CONT (16:57)
[2025-07-23] MEDS: IBUPROFEN 600 MG TABLET PO (17:55)
[2025-07-24 05:39] LABS: Hematocrit 32.7 % (37.0-47.0); Hemoglobin 9.9 g/dL (12.0-15.0)
[2025-07-24] MEDS: DOCUSATE SODIUM 100 MG CAPSULE PO (08:18)
[2025-07-24] MEDS: MULTIVIT/MIN/PREN/FOL AC/IRON TABLET 1 TAB PO (08:18)
[2025-07-24 08:38] VITALS: BP 120/68; PULSE 67; RESP 17; TEMP 36.7; O2SAT 100
[2025-07-24] MEDS: SIMETHICONE 80 MG TAB.CHEW PO (08:41)
--- NOTE | 2025-07-24 11:00 | P.PNOB_ITS ---
OB - PN: Subj Subjective Date/time seen: 07/24/25 11:00 Patient comments: no complaints and pain well controlled baby status: doing well OB - PN: Obj Data Labs 07/24/25 05:33 Labs: Laboratory Results - last 24 hr 07/24/25 05:33 Hgb 9.9 L Hct 32.7 L OB - PN A/P Plan day: 1 Plan: routine care, follow up 6 weeks and other (condoms for bc) Time Spent With Patient Time: Total time spent is greater than 50% in coordination of care (as documented) at patient's floor/unit and/or counseling patient: Exam 2 : Bimanual exam- vagina & uterus: other (Uterus firm, nt @U)
--- NOTE | 2025-07-24 12:20 | PC.NURSE ---
Mother verbalizes she is able to independently latch but has some nipple soreness. She is feeding at this time in cradle hold on the right breast. Encouraged mom to pull in close so that the nipple is not being pulled. Infant is currently meeting outcomes for weight, output, jaundice, blood sugar and feeding frequencies of 8-12 times in 24 hours. Mother declines any additional assistance or education at this time. Mother is encouraged to call for assistance if her infant doesn?t latch, pain with latching, questions or concerns. Mother voiced understanding of information shared along with the mom/baby guide for an additional resource. Reported to the Primary RN.
--- NOTE | 2025-07-24 17:19 | PC.NURSE ---
1700. Patient viewed the discharge video Mother & Baby Care, The First Two Weeks. Patient was given the opportunity and encouraged to ask questions. Patient verbalized understanding of information shared and has been given the mother/baby guide for home reference.
[2025-07-26 10:30] VITALS: BP 117/70; PULSE 73; RESP 18; TEMP 36.8; O2SAT 100
== END 2025-07-24 17:25 | disposition home or self-care (01) | DRG 560 ==
LOC: ANHLDR 16:37 → ANHOB2 19:20
PROVIDERS: Admitting Provider Obstetrics & Gynecology Gynecology; PCP Physician Assistant; Visit Provider Obstetrics & Gynecology Gynecology
DX: O99.824 Streptococcus B carrier state complicating childbirth (principal); Z3A.39 39 weeks gestation of pregnancy; Z37.0 Single live birth; O69.81X0 Labor and delivery complicated by cord around neck, without compression, not applicable or unspecified; O70.0 First degree perineal laceration during delivery
CPT/HCPCS: 36415; 85014; 85018; 85025; 85055; 86593; 86850; 86900; 86901; A9270; J0290; J2590; J7120